=== PATIENT | female | born 1995 | race Caucasian/White ===

== ENCOUNTER 2024-10-30 22:00 | Emergency (ER) | payer OTHER, BC, SELFPAY ==
--- NOTE | ~2024-10-30 | XR_ITS ---
Left elbow Technique: AP, oblique, and lateral views were obtained. Clinical History: Pain Findings: There is nondisplaced intra-articular fracture of the radial head.. Probable associated sma ll joint effusion with mild elevation of the anterior fat pad. Impression: Nondisplaced intra-articular fracture of the radial head. Reviewed, dictated and finalized at [facility]. ONNEL SPECIALIST Impression: Nondisplaced intra-articular fracture of the radial head.
[2024-10-30 22:03] VITALS: BP 110/91; PULSE 79; RESP 17; TEMP 36.6; O2SAT 99
--- NOTE | 2024-10-30 22:58 | ED.UPPEXIN ---
HPI - Extremity Injury (Upper) General Chief Complaint: Extremity Injury, Upper Stated Complaint: fell during dance. left elbow pain Time Seen by Provider: 10/30/24 22:07 Source: patient Mode of arrival: ambulatory Limitations: no limitations History of Present Illness HPI narrative: Patient is a 28-year-old female who presents the ED with report of left elbow pain. 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 She fell onto her left arm outstretched. Complains of pain to her left elbow. Reports mild swelling. Denies numbness. Denies any other injuries. Related Data Allergies Allergy/AdvReac Type Severity Reaction Status Date / Time azithromycin (From Zithromax AdvReac Diarrhea Verified 10/30/24 22:06 Z-El) Review of Systems Review of Systems: All systems reviewed & are unremarkable except as noted in HPI. All systems reviewed & are unremarkable except as noted in HPI and below Exam Narrative: GENERAL: Well appearing, well-nourished, non-toxic, in no acute distress. HEAD: Normocephalic, atraumatic. RESPIRATORY: Airway patent, respirations nonlabored. CARDIOVASCULAR: Regular rate and rhythm. Radial pulses strong and easily palpable. MUSCULOSKELETAL: Moves all extremities. No gross deformities. Limited range of motion of left elbow flexion and extension/supination/pronation due to pain. Tenderness to palpation over lateral epicondyle of left elbow. Mild swelling noted throughout left elbow. Sensation intact throughout LUE. SKIN: Warm, dry, normal color. NEURO: A&O X3. Speech clear. PSYCHIATRIC: Appropriate mood and affect. Normal interaction. Course Vital Signs Vital signs: Vital Signs Temperature 97.8 F 10/30/24 22:03 Pulse Rate 79 10/30/24 22:03 Respiratory Rate 17 10/30/24 22:03 Blood Pressure 110/91 H 10/30/24 22:03 Pulse Oximetry 99 10/30/24 22:03 Oxygen Delivery Room Air 10/30/24 22:03 Temperature 97.8 F 10/30/24 22:03 Pulse Rate 79 10/30/24 22:03 Respiratory Rate 17 10/30/24 22:03 Blood Pressure 110/91 H 10/30/24 22:03 Pulse Oximetry 99 10/30/24 22:03 Oxygen Delivery Room Air 10/30/24 22:03 MDM - Extremity Injury (Upper) MDM Narrative Medical decision making narrative: Patient?s injury is consistent with musculoskeletal etiology. No signs of neurologic or vascular compromise on physical examination. Compartments are soft without signs of compartment syndrome. XR left elbow interpreted by myself with evidence of nondisplaced radial head fracture. Pain is consistent with exam and injury. Patient is felt to be stable for discharge home and further outpatient management and treatment. Placed in sling. Given pain medication. Will be referred to orthopedics for further evaluation. Given return precautions. She agrees with plan. Discharged in stable condition. Medical Records Attestation: I reviewed the patient's medical records. Imaging Data Attestation: I personally reviewed and interpreted this imaging study as follows: My impression: XR L elbow: Nondisplaced radial head fracture. Discharge Plan Discharge Clinical Impression: Fracture of head of left radius Qualifiers: Encounter type: initial encounter Fracture type: closed Fracture alignment: nondisplaced Qualified Code(s): S52.125A - Nondisplaced fracture of head of left radius, initial encounter for closed fracture Patient Disposition: Home, Self-Care Condition: Stable Instructions: Antibiotic Form, Elbow Fracture (ED), How to Use a Sling (ED) Additional Instructions: You were diagnosed with a fracture of your left radial head. Utilize sling for comfort and support. Recommend frequent icing to elbow. Utilize Tylenol and ibuprofen as needed for pain, oxycodone as needed for more severe pain. Follow-up with orthopedics for further evaluation and management of fracture. Return to ED if you experience worsening or severe pain or swelling, numbness, recurrent injury, or any other symptoms of concern. Patient Language: Romansh Prescriptions: New ibuprofen 600 mg tablet 600 mg PO Q6H PRN (Reason: pain) Qty: 20 0RF acetaminophen 500 mg capsule 1,000 mg PO Q6H PRN (Reason: pain) Qty: 20 0RF oxycodone 5 mg tablet 5 mg PO Q6H PRN (Reason: pain) Qty: 15 0RF Follow-up/Referrals: Mayo Stokes MD [Physician] - (ORTHOPEDICS) PHYSICIAN NOT ON STAFF,NONSTAFF [Primary Care Provider] - Time of Disposition: 23:31
[2024-10-30] MEDS: HYDROcodone/acetaminophen (*CRX) 5-325 MG TABLET 1 TAB PO (23:04)
--- OUTSIDE RECORDS SUMMARY | 2024-11-04 11:46 | XMS_ITS | Encounter Summary ---
Author Organization [facility] Address [address] [place]: Epic Prelude ADT [place] [address] Care Team Providers Care Cad Designer Drafter Name Role Phone Wilfrido Burnette MD Primary Care Provider Yolis Holt PUPPY SITTER Unavailable [phone] Encounter Details Date Type Department Care Team (Latest Contact Info) Description 02/08/2021 Travel Social History Tobacco Use Types Packs/Day Years Used Date Smoking Tobacco: Never Smokeless Tobacco: Never Sex and Gender Information Value Date Recorded Sex Assigned at Not on file Gender Identity Not on file Sexual Orientation Not on file COVID-19 Exposure Response Date Recorded In the last month, have you been in contact with someone who was confirmed or suspected to have Coronavirus / COVID-19? No / Unsure 02/08/2021 8:38 AM CDT documented as of this encounter Plan of Treatment Not on file documented as of this encounter Visit Diagnoses Not on filedocumented in this encounter Care Teams Cad Designer Drafter Relationship Specialty Start Date End Date Wilfrido Burnette MD [address] [place] [phone] PCP - General Family Practice 03/26/17 Yolis Holt APRN [address] [place] [phone] PCP - Primary Care APP Family Practice 03/26/17 documented as of this encounter
--- OUTSIDE RECORDS SUMMARY | 2024-11-04 11:46 | XMS_ITS | Encounter Summary ---
Author Organization [facility] Address [address] [place] [address] Care Team Providers Care Radiographic Technologist Name Role Phone Wilfrido Burnette MD Primary Care Provider Yolis Holt APRN Unavailable [phone] Reason for Visit * Reason Comments Cough starting Friday even ing; strep exposure over past week; Encounter Details Date Type Department Care Team ([facility] st Contact Info) Description 03/06/2021 8:06 AM CDT - 03/06/2021 10:03 AM CDT Emergency [facility] Emergency Department [address] [place] [phone] Rekha Solis DO [address] [facility] [place] [phone] Cough (Primary Dx) Discharge Disposition: Home or Self Care Social History Tobacco Use Types Packs/Day Years [...] AM CDT documented as of this encounter Last Filed Vital Signs Vital Sign Reading Time Taken Comments Blood Pressure 120/69 03/06/2021 7:44 AM CDT Pulse 82 03/06/2021 7:44 AM CDT Temperature 36.4 ??C (97.6 ??F) 03/06/2021 7:44 AM CD T Respiratory Rate 20 03/06/2021 7:44 AM CDT Oxygen Saturation 100% 03/06/2021 7:44 AM CDT Inhaled Oxygen Concentration - - Weight 48.5 kg (107 lb) 03/06/2021 7:44 AM CDT Height - - Body Mass Index 20.22 11/13/2020 9:10 PM TUBE PUSHER documented in this encounter Discharge Instructions * Discharge Instructions* Rekha Solis DO - 03/06/2021 8:42 AM CDT You were seen and evaluated in the emergency department for your cough and congestion. As we discussed, your COVID-19 swab was negative. You can use an antihistamine such as Zyrtec for your symptoms.You may also use Mucinex to break up the mucus and congestion. Drink plenty of water. Use a teaspoon of honey at a time as a cough suppressant. Follow-up with your primary care physician for reevaluation in 2 to 3 days. Return to the emergency department for any worsening or concerning symptoms. * Attachments The following attachments cannot be sent through Care Everywhere. * Cough (Cook Islander) documented in this encounter Medications at Time of Discharge Medication Sig Dispensed Refills Start Date End Date amoxicillin-clavulanate (AUGMENTIN) 875-125 mg tablet Take 1 Tablet by mouth every 12 hours. 20 Tablet None 11/13/2020 benzonatate (TESSALON) 200 mg capsuleIndications:Fever in adult,Acute upper respiratory infection Take 1 Capsule (200 mg) by mouth 3 times daily as needed for Cough. 30 Capsule 09/29/2019 documented as of this encounter ED Notes * Rekha Solis DO - 03/06/2021 7:36 AM CDT HISTORY OF PRESENT ILLNESS Chiqui Romo, a 25 y.o. female presents to the ED with a Chief Complaint of Cough Subjective This is a 25-year-old female presents to the emergency department for evaluation of cough. The patient tells me that on she received her second Covid vaccine. Late Friday evening she began to experience sore throat, chills, cough and generalized ill feeling. She tells me that this all resolved with the exception of congestion and cough. This persisted through the weekend. 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 She tells me that she needs a negative COVID-19 swabto return to work. She has no other reported symptoms. She is otherwise healthy and takes no prescription medication daily. REVIEW OF SYSTEMS Review of Systems Constitutional: Negative for chills and fever. HENT: Positive for congestion. Negative for sore throat and voice change. Eyes: Negative for discharge and redness. Respiratory: Positive for cough. Negative for shortness of breath. Cardiovascular: Negative for chest pain. Gastrointestinal: Negative for abdominal pain, nausea and vomiting. Skin: Negative for color change and rash. Neurological: Negative for weakness and headaches. Psychiatric/Behavioral: Negative for agitation and confusion. All other systems reviewed and are negative. PAST MEDICAL HISTORY REVIEWED MEDICAL: Patient has a past medical history of Patient denies relevant medical history and Viral hepatitis. SURGICAL: Patient At least one of the histories has not been reviewed in over a year. Please Nasir as Reviewedin the history section then refresh this Smart Link. FAMILY: Patient's family history is not on file. SOCIAL: reports that she has never smoked. She has never used smokeless tobacco. No history on file. Social History Other Topics Concern ??? Not on file ALLERGIES Azithromycin HOME MEDICATIONS Patient's Home Medications Current Home Medications AMOXICILLIN-CLAVULANATE (AUGMENTIN) 875-125 MG TABLET BENZONATATE (TESSALON) 200 MG CAPSULE Medications Modified during this Encounter Medications Discontinued during this Encounter Objective PHYSICAL EXAM INITIAL VS BP: 120/69 (03/06/21743), Heart Rate: (not recorded), Resp: 20 (03/06/21743), Pulse: 82 (03/06/21743), Temp: 97.6 ??F (36.4 ??C) (03/06/21743), Temp src: Temporal (03/06/21743), SpO2: 100 %(03/06/21 0744), Height: (not recorded), Weight: 48.5 kg (107 lb) (03/06/21 0744), BMI (Calculated): (not recorded) No LMP recorded. Physical Exam Vitals and nursing note reviewed. HENT: Head: Normocephalic and atraumatic. Nose: Nose normal. Mouth/Throat: Mouth: Mucous membranes are moist. Pharynx: No oropharyngeal exudate or posterior oropharyngeal erythema. Comments: Uvula is midline. There is no intraoral swelling. Eyes: Extraocular Movements: Extraocular movements intact. Pupils: Pupils are equal, round, and reactive to light. Neck: Comments: No lymphadenopathy Cardiovascular: Rate and Rhythm: Normal rate and regular rhythm. Pulses: Normal pulses. Heart sounds: Normal heart sounds. Pulmonary: Effort: Pulmonary effort is normal. Breath sounds: Normal breath sounds. No wheezing or rales. Abdominal: General: There is no distension. Palpations: Abdomen is soft. Tenderness: There is no abdominal tenderness. Musculoskeletal: General: Normal range of motion. Cervical back: Normal range of motion and neck supple. Skin: General: Skin is warm and dry. Capillary Refill: Capillary refill takes less than 2 seconds. Neurological: Mental Status: She is alert and oriented to person, place, and time. Comments: Normal speech. Normal coordination. Psychiatric: Mood and Affect: Mood normal. Behavior: Behavior normal. DIAGNOSTICS LAB: 2019 NOVEL CORONAVIRUS (COVID-19) PCR DETECTION Result Value COVID-19 PCR Not Detected PERFORMING LAB [facility]: No orders to display EKG: PROCEDURES Procedures MEDICAL DECISION MAKING AND PLAN OF CARE MDM I have reviewed nursing notes related to past medical history, social history, and review of systems and agree, unless otherwise noted. 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 Vital signs stable here. On exam the patient was nontoxic and had no evidence of respiratory distress. Lung sounds are clear equal throughout. She had no cervical lymphadenopathy. No tonsillar exudates, swelling, or posterior pharyngeal erythema. Covid swab performed and was negative. At this time, she will be discharged home with instruction to continue supportive care for her congestion and cough. I haveasked that she follow-up with her primary care physician as needed and return to the emergency department for any worrisome or concerning symptoms. She voiced understands plan. All questions sought and answered. . New Prescriptions for this Encounter LAST VS BP: 120/69 (03/06/21743), Heart Rate: (not recorded), Resp: 20 (03/06/21743), Pulse: 82 (03/06/21743), Temp: 97.6 ??F (36.4 ??C) (03/06/21743), Temp src: Temporal (03/06/21743), SpO2: 100 %(03/06/21743) CLINICAL IMPRESSION Final diagnoses: [R05] Cough (Primary) DISPOSITION, EDUCATION AND MEDICATION RECONCILIATION Medications reconciled. See after visit summary for patient education on discharged patients. ED Disposition ED Disposition Condition User Date/Time Comment Discharge Stable Rekha Solis DO Tue Mar 06, 2021 9:49 AM ATTESTATION STATEMENTS documented in this encounter Plan of Treatment Not on file documented as of this encounter Procedures Procedure Name Priority Date/Time Associated Diagnosis Comments 2019 NOVEL CORONAVIRUS (COVID-19) PCR DETECTION Stat 03/06/2021 8:26 AM CDT documented in this encounter Results * 2019 NOVEL CORONAVIRUS (COVID-19) PCR DETECTION (03/06/2021 8:26 AM CDT) COVID-19 PCR NOT DETECTED Not Detected 03/06/20 9:38 AM CDT [facility] 03/06/2021 9:38 AM CDT [facility] Upper Respiratory ENTIRE NASOPHARYNX / Unknown Collection / Unknown 03/06/2021 8:26 AM CDT 03/06/2021 8:43 AM CDT Narrative [facility] - 03/06/2021 9:38 AM CDT This test has been authorized by the FDA under an Emergency Use Authorization for use by authorized laboratories.?? This test has been validated in accordance with the FDA's guidance regarding Coronavirus Disease-2019 testing.?? Optimum specimen types and timing for peak viral levels during infection have not been determined.?? A negative RT-PCR result does not rule out infection with the 2019-Novel Coronavirus. Rekha Solis DO MICROBIOLOGY - GENERAL ORDERABLES [facility] CLIA# [id number] [address] [address] documented in this encounter Visit Diagnoses Diagnosis Cough- Primary documented in this encounter Additional Health Concerns Infection Onset Date Last Indicated Resolved Time R/O COVID-19 03/06/2021 03/06/2021 03/06/2021 9:38 AM CDT documented as of this encounter Care Teams Radiographic Technologist Relationship Specialty Start Date End Date Wilfrido Burnette MD [address] [place] [phone] PCP - General Family Practice 03/26/17 Yolis Holt APRN [address] [place] [phone] PCP - Primary Care APP Family Practice 03/26/17 documented as of this encounter
--- OUTSIDE RECORDS SUMMARY | 2024-11-04 11:46 | XMS_ITS | Clinical Summary ---
Author Organization [facility] Address [address] [place] [address] Care Team Providers Care Clinical Operations Consultant Name Role Phone Wilfrido Burnette MD Primary Care Provider Yolis Holt MOP MACHINE OPERATOR Unavailable [phone] Allergies Active Allergy Reactions Criticality Noted Date Comments Azithromycin Diarrhea High 03/26/2017 Medications Medication Sig Dispensed Refills Start Date End Date Status benzonatate (TESSALON) 200 mg capsuleIndications:Fe leeann in adult,Acute upper respiratory infection Take 1 Capsule (200 mg) by mouth 3 times daily as needed for Cough. 30 Capsule 09/29/2019 Active amoxicillin-clavulana te (AUGMENTIN) 875-125 mg tablet Take 1 Tablet by mouth every 12 hours. 20 Tablet None 11/13/2020 Active Active Problems No known active problems Immunizations Name Administration Dates Next Due (Earlier Media)(12 YR UP) COVID-19 VACCINE - EMERGENCY USE AUTHORIZATION, MRNA, [id number](PF) 30 MCG/0.3 ML IM SUSP 03/01/2021,02/08/2021 Social History Tobacco Use Types Packs/Day Years Used Date Smoking Tobacco: Never Smokeless Tobacco: Never Tobacco Cessation:Counseling Given: Yes Sex and Gender Information Value Date Recorded Sex Assigned at Not on file Gender Identity Not on file Sexual Orientation Not on file Last Filed Vital Signs Vital Sign Reading Time Taken Comments Blood Pressure 120/69 03/06/2021 7:44 AM CDT Pulse 82 03/06/2021 7:44 AM CDT Temperature 36.4 ??C (97.6 ??F) 03/06/2021 7:44 AM CD T Respiratory Rate 20 03/06/2021 7:44 AM CDT Oxygen Saturation 100% 03/06/2021 7:44 AM CDT Inhaled Oxygen Concentration - - Weight 48.5 kg (107 lb) 03/06/2021 7:44 AM CDT Height 154.9 cm (5' 1 ) 11/13/2020 9:10 PM SPARE HAND CARDING Body Mass Index 20.22 11/13/2020 9:10 PM SPARE HAND CARDING Plan of Treatment Health Maintenance Due Date Last Done Comments DTAP/TDAP/TD VACCINES (1 - Tdap) 2015 HEPATITIS B VACCINES (1 of 3 - 19+ 3-dose series) 2015 CERVICAL CANCER SCREENING 2017 Preventative Visit- Commercial 11/17/2023 05/27/2022 INFLUENZA VACCINE (#1) 2024 09/24/2018 COVID-19 Vaccine (3 - 2023-2 5 season) 2024 03/01/2021, 02/08/2021 HPV VACCINES Aged Out No longer eligi ble based on patient's age to complete this topic PNEUMOCOCCAL VACCINE 0-64 YEARS Aged Out No longer eligible b ased on patient's age to complete this topic Care Teams Clinical Operations Consultant Relationship Specialty Start Date End Date Wilfrdio Burnette MD [address] [place] [phone] PCP - General Family Practice 03/26/17 Yolis Holt APRN [address] [place] [place] [phone] PCP - Primary Care APP1 Family Practice 03/26/17
--- OUTSIDE RECORDS SUMMARY | 2024-11-04 11:46 | XMS_ITS | Encounter Summary ---
Author Organization [facility] Address [address] [place] [address] Care Team Providers Care Deputy Building Guard Name Role Phone Wilfrido Burnette MD Primary Care Provider Yolis Holt ARRANGING FUNERAL DIRECTOR Unavailable [phone] Encounter Details Date Type Department Care Team ([facility] Contact Info) Description 03/01/2021 8:20 AM CDT Immunization [facility] [address] [address] High priority for 2019 novel coronavirus vaccination (Primary Dx) Social History Tobacco Use Types Packs/Day Years [...] documented as of this encounter Visit Diagnoses Diagnosis High priority for 2019 novel coronavirus vaccination- Primary documented in this encounter Care Teams Deputy Building Guard Relationship Specialty Start Date End Date Wilfrido Burnette MD [address] [place] [phone] PCP - General Family Practice 03/26/17 Yolis Holt, ARRANGING FUNERAL DIRECTOR [address] [place] [phone] PCP - Primary Care APP1 Family Practice 03/26/17 documented as of this encounter
--- OUTSIDE RECORDS SUMMARY | 2024-11-04 11:46 | XMS_ITS | Encounter Summary ---
Author Organization [facility] Address [address] [place] [address] Care Team Providers Care Hygiene Coordinator Name Role Phone Wilfrido Burnette MD Primary Care Provider Yolis Holt ACTIVITIES THERAPIST Unavailable [phone] Encounter Details Date Type Department Care Team ([facility] Contact Info) Description 02/08/2021 8:30 AM CDT Immunization [facility] [address] [address] High priority for 2019 novel coronavirus vaccination [...] Primary documented in this encounter Care Teams Hygiene Coordinator Relationship Specialty Start Date End Date Wilfrido Burnette MD [address] [facility] [address] [place] [phone] PCP - General Family Practice 03/26/17 Yolis Holt, ACTIVITIES THERAPIST [address] [facility] [address] [place] [phone] PCP - Primary Care APP1 Family Practice 03/26/17 documented as of this encounter
--- OUTSIDE RECORDS SUMMARY | 2024-11-04 11:47 | XMS_ITS | Encounter Summary ---
Author Organization [facility] Address [address] Attn: Epic Prelude ADT [place] [address] Care Team Providers Care Solar Pool Heating Installer Name Role Phone Unavailable Primary Care Provider Unavailabl e Encounter Details Date Type Department Care Team (Latest Contact Info) Description 05/27/2022 Travel Social History Tobacco Use Types Packs/Day Years Used Date Smoking Tobacco: Never Smokeless Tobacco: Never Sex and Gender Information Value Date Recorded Sex Assigned at Not on file Gender Identity Not on file Sexual Orientation Not on file COVID-19 Exposure Response Date Recorded In the last 10 days, have yo u been in contact with someone who was confirmed or suspected to have Coronavirus/COVID-19? No / Unsure 05/27/2022 2:46 PM CDT documented as of this encounter Plan of Treatment Not on file documented as of this encounter Visit Diagnoses Not on filedocumented in this encounter
--- OUTSIDE RECORDS SUMMARY | 2024-11-04 11:47 | XMS_ITS | Encounter Summary ---
Author Organization [facility] Address [address] [place] [address] Care Team Providers Care Jawbone Puller Name Role Phone Wilfrido Burnette MD Primary Care Provider Yolis Holt SLIDER ASSEMBLER Unavailable [phone] Reason for Visit * Eval and Treat (Routine) - Closed Specialty Diagnoses / Procedures Referred By Nicol vaughan Referred To Contact Physical Therapy Diagnoses Acute bilateral low back pain without sciatica Yolis Holt H, SLIDER ASSEMBLER [address] [facility] [place] [address] [facility] [address] [place] [phone] Referral ID Status Reason Start Date Expiration Date Visits Re quested Visits Authorized [id number] Closed 04/18/2017 04/18/2018 6 6 Encounter Details Date Type Department Care Team (Late st Contact Info) Description 05/13/2017 2:07 PM CDT - 05/13/2017 11:59 PM CDT Hospital Encounter [facility] Physical Therapy [facility] [address] [place] [phone] Yolis Holt, SLIDER ASSEMBLER [address] [facility] [place] [phone] [place]berg, [place] I, Physical Therapist Acute bilateral low back pain without sciatica Discharge Disposition: Home or Self Care Social History Tobacco Use Types Packs/Day Years Used Date Smoking Tobacco: Never Sex and Gender Information Value Date Recorded Sex Assigned at Not on file Gender Identity Not on file Sexual Orientation Not on file documented as of this encounter Miscellaneous Notes * Therapy Treatment - Kenya Morales I Physical Therapist - 05/13/2017 2:34 PM CDT Physical Therapy Daily Note Date: 05/13/17 Start Time: 14:20 End Time: 15:15 Total Time: 55 minutes Area Treated: Thoracolumbar and L LE Subjective: Patient reports compliance with HEP. Reports her back has been doing better. Pain level prior to treatment: Are you having pain right now? Yes 2/10 Medication changes since last visit: No Medical Dx change since last visit: No Allergic drug response since last visit: No Significant operation and or procedure since last visit: No Objective: Pt cued for proper positioning and safety with exercises by PT. Pt had no c/o increased pain with exercises Pt performs exercises slowly and with control. Pt requires occasional verbal cues for gluteal and TrA activation. Improved performance with cueing. Modalities Used: 97299 Interferential @ 12.0 intensity 15 minutes, 30497 Cold Pack x 15 minutes in order to decreasepain, decrease inflammation to assist pt to return to PLOF. Skin intact pre/post modality. Modality applied at end of treatment session last 15 minutes. Exercises: See Scanned Exercise Flow-Sheet in Media section of Chart Review Patient performed and progressed on skilled exercises to improve thoracolumbar and pelvic core strength, ROM, posture, and stability.?? Patient monitored and given verbal and tactile cues as needed for proper technique and form. Therapeutic exercises included: Exercise Sets/Repetitions Level Comments Treadmill 5 minutes 2.0 mph Lumbar extension 20 reps 50# Hip abduction X 20 bilateral 17.5# Single leg bridge X 15 bilateral Bird dogs X 20 2# dowel across lumbar Seated trunk rotation X 15 bilateral Level 3 Lateral and forward step ups SLS to 10 inch high step X 20 bilateral Bolivian ball TrA roll outs X 15 Prone REIL for thoracic spine 10 x 3 second holds/sag at end range extension [id number]: Therapeutic Exercise performed for 40 minutes Home Exercise Program/Instruction: See Scanned Exercise Flow-Sheet in Media section of Chart Review. Continue Manual Therapy: None 78578: Manual Therapy performed for 0 minutes Assessment-Patient's Response to Treatment/Functional Progress: Patient again able to tolerate exercise progression difficulty today without increased pain. HEP reviewed. Patient instructed to continue. Pain Level After Treatment: Are you having pain right now? Yes 12/27 Plan: Continue current treatment plan Pt will continue to work on improve bilateral hip strength, and thoracolumbar ROM in order to return to PLOF without pain or limitations. ?? Therapist's Signature: [place] Morales, Physical Therapist documented in this encounter Plan of Treatment Not on file documented as of this encounter Visit Diagnoses Not on filedocumented in this encounter Care Teams Jawbone Puller Relationship Specialty Start Date End Date Wilfrido Burnette MD [address] [facility] [address] [place] [phone] PCP - General Family Practice 03/26/17 Yolis Holt APRN [address] [facility] [place] [phone] PCP - Primary Care APP1 Family Practice 03/26/17 documented as of this encounter
--- OUTSIDE RECORDS SUMMARY | 2024-11-04 11:47 | XMS_ITS | Encounter Summary ---
Author Organization [facility] Address [address] [place] [address] Care Team Providers Care Bus Repair Supervisor Name Role Phone Wilfrido Burnette MD Primary Care Provider Yolis Holt APRN Unavailable [phone] Reason for Visit * Reason Comments Fatigue pt states she has no symptoms but wants to get tested for strep. sister tested positive for strep Encounter Details Date Type Department Care Team (Latest Contact Info) Description 07/17/2018 6:15 PM CDT Office Visit [facility] [address] [place] [phone] Yrn Jaramillo MD [address] [place] [phone] Streptococcal pharyngitis (Primary Dx); Sore throat Social History Tobacco Use Types Packs/Day Years Used Date Smoking Tobacco: Never Smokeless Tobacco: Never Sex and Gender Information Value Date Recorded Sex Assigned at Not on file Gender Identity Not on file Sexual Orientation Not on file documented as of this encounter Last Filed Vital Signs Vital Sign Reading Time Taken Comments Blood Pressure 110/64 07/17/2018 6:39 PM CDT Pulse 66 07/17/2018 6:39 PM CDT Temperature 37.1 ??C (98.7 ??F) 07/17/2018 6:39 PM CD T Respiratory Rate 18 07/17/2018 6:39 PM CDT Oxygen Saturation 99% 07/17/2018 6:39 PM CDT Inhaled Oxygen Concentration - - Weight 49 kg (108 lb) 07/17/2018 6:39 PM CDT Height 154.9 cm (5' 1 ) 07/17/2018 6:39 PM CDT Body Mass Index 20.41 07/17/2018 6:39 PM CDT documented in this encounter Progress Notes * Yrn Jaramillo MD - 07/17/2018 7:05 PM CDT HISTORY OF PRESENT ILLNESS Chiqui Romo, a 22 y.o. female presents with a Chief Complaint of Fatigue (pt states she has nosymptoms but wants to get tested for strep. sister tested positive for strep) Subjective 22-year-old white female's been exposed to strep closely. She is having some fatigue but otherwise is asymptomatic. The history is provided by the patient. The medical record reflects the History of Present Illness as obtained by myself in discussion withthe patient. Fatigue This is a new problem. The current episode started yesterday. The problem occurs constantly. The problem has not changed since onset.Pertinent negatives include no chest pain, no abdominal pain, no headaches and no shortness of breath. Nothing aggravates the symptoms. Nothing relieves the symptoms.She has tried nothing for the symptoms. REVIEW OF SYSTEMS Review of Systems Constitutional: Positive for fatigue. HENT: Negative. Eyes: Negative. Respiratory: Negative. Negative for shortness of breath. Cardiovascular: Negative. Negative for chest pain. Gastrointestinal: Negative. Negative for abdominal pain. Musculoskeletal: Negative. Neurological: Negative. Negative for headaches. Objective PHYSICAL EXAM BP 110/64 (BP Location: Left arm, Patient Position (BP): Sitting, BP Cuff Size: Adult) Pulse 66 Temp 98.7 ??F (37.1 ??C) (Temporal) Resp 18 Ht 5' 1 (1.549 m) Wt 49 kg (108 lb) LMP 06/13/2018 (Exact Date) SpO2 99% BMI 20.41 kg/m?? Physical Exam Constitutional: She is oriented to person, place, and time. She appears well- developed and well-nourished. HENT: Head: Normocephalic and atraumatic. Right Ear: External ear normal. Left Ear: External ear normal. Nose: Nose normal. Mouth/Throat: Oropharynx is clear and moist. No oropharyngeal exudate. Eyes: Pupils are equal, round, and reactive to light. Conjunctivae are normal. Neck: Normal range of motion. Neck supple. Cardiovascular: Normal rate, regular rhythm and normal heart sounds. Pulmonary/Chest: Effort normal and breath sounds normal. No respiratory distress. She has no wheezes. She has no rales. Lymphadenopathy: She has no cervical adenopathy. Neurological: She is alert and oriented to person, place, and time. Skin: Skin is warm and dry. Results for orders placed or performed in visit on 07/17/18 (from the past 24 hour(s)) POC RAPID STREP A Result Value Ref Range RAPID STREP Positive (A) Negative INTERNAL KIT QC Pass Pass KIT LOT NUMBER SEE LOG KIT EXPIRATION DATE SEE LOG Procedures Assessment ASSESSMENT and PLAN: ICD-10-CM ICD-9-CM 1. Streptococcal pharyngitis J02.0 034.0 amoxicillin (AMOXIL) 500 mg capsule 2. Sore throat J02.9 462 POC RAPID STREP A POC RAPID STREP A Tylenol as needed for pain. She is cautioned to be sure to take the antibiotic for a full 10 days. documented in this encounter Plan of Treatment Not on file documented as of this encounter Procedures Procedure Name Priority Date/Time Associated Diagnosis Comments POC RAPID STREP A ANTIGEN Routine 07/17/2018 6:46 PM CDT Sore throat documented in this encounter Results * (ABNORMAL) POC RAPID STREP A (07/17/2018 6:46 PM CDT) RAPID STREP Positive( A) Negative [facility] INTERNAL KIT QC Pass Pass [facility] KIT LOT NUMBER POC SEE LOG [facility] KIT EXPIRATION DATE POC SEE LOG [facility] Upper respiratory specimen (specimen) SPECIMEN FROM THROAT / Unknown 07/17/2018 6:46 PM CDT Yrn Jaramillo MD POINT OF CARE TESTIN G [facility] CLIA# [id number] [address] [place] [address] documented in this encounter Visit Diagnoses Diagnosis Streptococcal pharyngitis- Primary Streptococcal sore throat Sore throat Acute pharyngitis documented in this encounter Care Teams Bus Repair Supervisor Relationship Specialty Start Date End Date Wilfrido Burnette MD [address] [facility] [address] [place] [phone] PCP - General Family Practice 03/26/17 Yolis Holt APRN [address] [facility] [place] [phone] PCP - Primary Care [facility] Family Practice 03/26/17 documented as of this encounter
--- OUTSIDE RECORDS SUMMARY | 2024-11-04 11:47 | XMS_ITS | Encounter Summary ---
Author Organization [facility] Address [address] [place] [address] Care Team Providers Care Supply Chain Planner Name Role Phone Unavailable Primary Care Provider Unavailabl e Reason for Referral * Eval and Treat (Routine) - Closed Specialty Diagnoses / Procedures Referred By Nicol vaughan Referred To Contact Sports Medicine Diagnoses Achilles tendon pain Yolis Holt APRN [address] [place] [address] Kash Dia MD [address], [place] [address] Referral ID Status Reason Start Date Expiration Date Visits Re quested Visits Authorized [id number] Closed 05/27/2022 05/27/2023 1 1 Reason for Visit * Reason Comments Physical TB skin test Encounter Details Date Type Department Care Team (Late st Contact Info) Description 05/27/2022 3:00 PM CDT Office Visit [facility] Family Medicine Physician [address] [place] [address] Yolis Holt APRN [address] [place] [address] Well adult exam (Primary Dx); Achilles tendon pain Social History Tobacco Use Types Packs/Day Years [...] PM CDT documented as of this encounter Last Filed Vital Signs Vital Sign Reading Time Taken Comments Blood Pressure 118/72 05/27/2022 2:53 PM CDT Pulse 101 05/27/2022 2:53 PM CDT Temperature 37.2 ??C (99 ??F) 05/27/2022 2:53 PM CDT Respiratory Rate - - Oxygen Saturation 98% 05/27/2022 2:53 PM CDT Inhaled Oxygen Concentration - - Weight 49.9 kg (110 lb) 05/27/2022 2:53 PM CDT Height 154.9 cm (5' 1 ) 05/27/2022 2:53 PM CDT Body Mass Index 20.78 05/27/2022 2:53 PM CDT documented in this encounter Progress Notes * Yolis Holt APRN - 05/27/2022 2:58 PM CDT Chiqui Romo is a 26 y.o. female Chief Complaint Patient presents with ??? Physical TB skin test Allergies: traveling back and forth to [place], [place] recently and having problem with allergies. Reports runny nose, nasal congestion. Taking OTC Zyrtec that has improved symptoms. Needing a TB skin test for new dancing contract. Patient is currently not sexually active. Pt reports periods are overall regular with intermittent late cycles. 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 Right achilles tendon/heel pain: Pt reports that she injured her right foot in 2017 that extended into her achilles tendon. Pt reports that she had to be placed in a walking boot x7 weeks. Did not require surgery. Pt reports that she has been dancing ballet more strenuously lately causing pain to the back of her right lower leg and into her right heel. Pt does report improvement of pain when not dancing. Review of Systems - History obtained from the patient General ROS: negative for weight changes, fever ENT ROS: positive for - nasal congestion and nasal discharge Allergy and Immunology ROS: negative for itchy eyes, nasal congestion, sneezing, lymphadenopathy Respiratory ROS: negative for cough, shortness of breath, or wheezing Cardiovascular ROS: negative for chest pain or dyspnea on exertion Gastrointestinal ROS: negative for reflux, abdominal pain, change in bowel habits, or black or bloody stools There is no problem list on file for this patient. Objective BP 118/72 Pulse (!) 101 Temp 99 ??F (37.2 ??C) (Temporal) Ht 5' 1 (1.549 m) Wt 49.9 kg (110 lb) SpO2 98% BMI 20.78 kg/m?? General appearance: alert, well appearing, and in no distress. ENT exam reveals - bilateral TM normal without fluid or infection and post nasal drip noted. Chest: clear to auscultation, no wheezes, rales or rhonchi, symmetric air entry. CVS exam: normal rate, regular rhythm, normal S1, S2, no murmurs, rubs, clicks or gallops. Mental Status: alert, oriented to person, place, and time. Musculoskeletal exam: abnormal exam of right lower leg/ankle/heel. ASSESSMENT & PLAN: Chiqui was seen today for physical. Diagnoses and all orders for this visit: Well adult exam Achilles tendon pain - AMB REFERRAL TO SPORTS MEDICINE Other orders - SKIN TEST TB Wellness handout sent via [employer] or handout given in office. Patient instructions & information discussed with the patient and all questions fully answered.Call or return to clinic prn if these symptoms worsen or fail to improve as anticipated. documented in this encounter Miscellaneous Notes * Patient Instructions - Yolis Holt APRN - 05/27/2022 5:05 PM CDT Images from the original note were not included. ?? Well Visit, Ages 18 to 50: Care Instructions Overview Well visits can help you stay healthy. Your doctor has checked your overall health and may have suggested ways to take good care of yourself. Your doctor also may have recommended tests. At home, youcan help prevent illness withhealthy eating, regular exercise, and other steps. Follow-up care is a campbell part of your treatment and safety. Be sure to make and go to all appointments, and call your doctor if you are having problems. It's also a good idea to know your test resultsand keep alist of the medicines you take. How can you care for yourself at home? Get screening tests that you and your doctor decide on. Screening helps find diseases before any symptoms appear. ??? Eat healthy foods. Choose fruits, vegetables, whole grains, protein, and low-fat dairy foods. Limit fat, especially saturated fat. Reduce salt in your diet. ??? Limit alcohol. If you are a man, have no more than 2 drinks a day or 14 drinks a week. If you are a woman, have no more than 1 drink a day or 7 drinks a week. ??? Get at least 30 minutes of physical activity on most days of the week. Walking is a good choice. You also may want to do other activities, such as running, swimming, cycling, or playing tennis orteam sports. Discuss any changes in your exercise program with your doctor. ??? Reach and stay at a healthy weight. This will lower your risk for many problems, such as obesity, diabetes, heart disease, and high blood pressure. ??? Do not smoke or allow others to smoke around you. If you need help quitting, talk to your doctor about stop-smoking programs and medicines. These can increase your chances of quitting for good. ??? Care for your mental health. It is easy to get weighed down by worry and stress. Learn strategies to manage stress, like deep breathing and mindfulness, and stay connected with your family and community. If you find you often feel sad or hopeless, talk with your doctor. Treatment can help. ??? Talk to your doctor about whether you have any risk factors for sexually transmitted infections(STIs). You can help prevent STIs if you wait to have sex with a new partner (or partners) until you've each been tested for STIs. It also helps if you use condoms (male or female condoms) and if youlimit your sex partners to one person who only has sex with you. Vaccines are available for some STIs, such as HPV. ??? If you think you may have a problem with alcohol or drug use, talk to your doctor. This includes prescription medicines (such as amphetamines and opioids) and illegal drugs (such as cocaine and methamphetamine). Your doctor can help you figure out what type of treatment is best for you. ??? Protect your skin from too much sun. When you're outdoors from 10 a.m. to 4 p.m., stay in the shade or cover up with clothing and a hat with a wide brim. Wear sunglasses that block UV rays. Even when it's cloudy, put broad-spectrum sunscreen (SPF 30 or higher) on any exposed skin. ??? See a dentist one or two times a year for checkups and to have your teeth cleaned. ??? Wear a seat belt in the car. When should you call for help? Watch closely for changes in your health, and be sure to contact your doctor ifyou have any problems or symptoms that concern you. Where can you learn more? Go to https://www.Buzz Referrals.net/patiented Enter P072 in the search box to learn more about Well Visit, Ages 18 to 50: Care Instructions. ?? [id number] [employer]. Care instructions adapted under license by your healthcare professional. If you have questions about a medical condition or this instruction, always ask your healthcare professional. These instructions may not represent the values of this healthcare organization. [employer] disclaims any warrantyor liability for your use of this information. documented in this encounter Plan of Treatment Scheduled Referrals Name Type Priority Associated Diagnoses Orde r Schedule AMB REFERRAL TO SPORTS MEDICINE Outpatient Referral Routine Achilles tendon pain Ordered: 05/27/2022 documented as of this encounter Visit Diagnoses Diagnosis Well adult exam- Primary Routine general medical examination at a health care facility Achilles tendon pain Achilles bursitis or tendinitis documented in this encounter
--- OUTSIDE RECORDS SUMMARY | 2024-11-04 11:47 | XMS_ITS | Encounter Summary ---
Author Organization [facility] Address [address] [facility] Attn: Epic Prelude ADT [place] [address] Care Team Providers Care Bank Worker Name Role Phone Unavailable Primary Care Provider Unavailabl e Encounter Details Date Type Department Care Team (Latest Contact Info) Description 07/20/2022 Travel Social History Tobacco Use Types Packs/Day [...] suspected to have Coronavirus/COVID-19? No / Unsure 07/20/2022 10:45 PM CDT documented as of this encounter Plan of Treatment Not on file documented as of this encounter Visit Diagnoses Not on filedocumented in this encounter
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
--- OUTSIDE RECORDS SUMMARY | 2024-11-04 11:47 | XMS_ITS | Encounter Summary ---
Author Organization [facility] Address [address] [place] [address] Care Team Providers Care Electronics Lead Name Role Phone Wilfrido Burnette MD Primary Care Provider Yolis Holt NET DEVELOPER CONSULTANT Unavailable [phone] Reason for Visit * Eval and Treat (Routine) - Closed Specialty Diagnoses / Procedures Referred By Nicol vaughan Referred To Contact Physical Therapy Diagnoses Acute bilateral low back pain without sciatica Yolis Holt H, NET DEVELOPER CONSULTANT [address] [facility] [place] [address] [facility] [address] [place] [address] Referral ID Status Reason Start Date Expiration Date Visits Re quested Visits Authorized [id number] Closed 04/18/2017 04/18/2018 6 6 Encounter Details Date Type Department Care Team (Late st Contact Info) Description 05/06/2017 2:10 PM CDT - 05/06/2017 11:59 PM CDT Hospital Encounter [facility] Physical Therapy [facility] [address] [place] [address] Yolis Holt, NET DEVELOPER CONSULTANT [address] [facility] [place] [phone] [place], [place] I, Physical Therapist Acute bilateral low [...] - Kenya Morales I Physical Therapist - 05/06/2017 3:48 PM CDT Physical Therapy Daily Note Date: 05/06/17 Start Time: 14:15 End Time: 15:15 Total Time: 60 minutes Area Treated: Thoracolumbar and L LE Subjective: Patient reports compliance with HEP. Reports she has not been to dance the past few days due to caring for her grandfather. Pain level prior to treatment: Are you having pain right now? Yes 4/10 Medication changes since last visit: No Medical [...] activation. Improved performance with cueing. Modalities Used: 46887 Interferential @ 12.0 intensity 15 minutes, 94161 Cold Pack x 15 minutes in order [...] exercises included: Exercise Sets/Repetitions Level Comments Treadmill 3 minutes 2.5 mph Lumbar extension 3 minutes 45# Hip abduction X 15 bilateral 17.5# Single leg bridge X 15 bilateral Bird dogs X 20 2# dowel across lumbar Seated trunk rotation X 15 bilateral Level 3 Prone supermans X 10 bilateral Lateral step ups SLS to 8 inch high step X 20 bilateral Burkinan ball TrA roll outs X 10 Prone REIL for thoracic spine 10 x 3 second holds/sag at end range extension 88900: Therapeutic Exercise performed for 45 minutes Home Exercise Program/Instruction: See Scanned Exercise Flow-Sheet in Media section of Chart Review. Continue Manual Therapy: None 90704: Manual Therapy performed for 0 minutes Assessment-Patient's Response to Treatment/Functional Progress: Patient able to tolerate exercise progression difficulty today [...] on filedocumented in this encounter Care Teams Electronics Lead Relationship Specialty Start Date End Date Wilfrido Burnette MD [address] [place] [address] PCP - General Family Practice 03/26/17 Yolis Holt APRN [address] [facility] [place] [address] PCP - Primary Care APP Family Practice 03/26/17 documented as of this encounter
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
--- OUTSIDE RECORDS SUMMARY | 2024-11-04 11:47 | XMS_ITS | Encounter Summary ---
Author Organization [facility] Address [address] [place] [address] Care Team Providers Care Porter Luggage Name Role Phone Wilfrido Burnette MD Primary Care Provider Yolis Holt APRN Unavailable [phone] Reason for Visit * Reason Onset Date Comments Medication Refill 08/22/2017 Encounter Details Date Type Department Care Team ([facility] st Contact Info) Description 08/22/2017 Telephone [facility] Family Medicine Physician Jag [address] [facility] [facility] [address] [place] [phone] Yolis Holt, JARROD [address] [facility] [place] [phone] Medication Refill Social History Tobacco Use Types Packs/Day Years Used Date Smoking Tobacco: Never Sex and Gender Information Value Date Recorded Sex Assigned at Not on file Gender Identity Not on file Sexual Orientation Not on file documented as of this encounter Miscellaneous Notes * Telephone Encounter - April Barker - 08/22/2017 12:19 PM CDT ----- Message from Yolis Holt APRN sent at 08/21/2017 5:21 PM CDT ----- Thyroid labs are normal. Vit D is low. Please order Rx for vit D, weekly tab x 6 months documented in this encounter Plan of Treatment Not on file documented as of this encounter Visit Diagnoses Not on filedocumented in this encounter Care Teams Porter Luggage Relationship Specialty Start Date End Date Wilfrido Burnette MD [address] [facility] [address] [place] [phone] PCP - General Family Practice 03/26/17 Yolis Holt APRN [address] [facility] [place] [phone] PCP - Primary Care APP1 Family Practice 03/26/17 documented as of this encounter
--- OUTSIDE RECORDS SUMMARY | 2024-11-04 11:47 | XMS_ITS | Encounter Summary ---
Author Organization [facility] Address [address] [place] [address] Care Team Providers Care Public Health Professor Name Role Phone Wilfrido Burnette MD Primary Care Provider Yolis Holt CABIN CREW Unavailable [phone] Reason for Visit * Reason Comments Headache 3 days Sore Throat has been exposed to strep, wants swab, no known fever, denies cough or congestion Encounter Details Date Type Department Care Team (Late st Contact Info) Description 09/24/2018 1:45 PM CERTIFIED SHORTHAND REPORTER Office Visit [facility] Family Medicine Physician Jag [address] [facility] [place] [phone] Yolis Holt, CABIN CREW [address] [facility] [facility] [place] [phone] Sore throat (Primary Dx); Acute non-recurrent pansinusitis Social History Tobacco Use Types Packs/Day Years Used Date Smoking Tobacco: Never Smokeless Tobacco: Never Tobacco Cessation:Counseling Given: Yes Sex and Gender Information Value Date Recorded Sex Assigned at Not on file Gender Identity Not on file Sexual Orientation Not on file documented as of this encounter Last Filed Vital Signs Vital Sign Reading Time Taken Comments Blood Pressure 108/66 09/24/2018 1:51 PM CERTIFIED SHORTHAND REPORTER Pulse 61 09/24/2018 1:51 PM CERTIFIED SHORTHAND REPORTER Temperature 36.4 ??C (97.5 ??F) 09/24/2018 1:51 PM CS T Respiratory Rate - - Oxygen Saturation 98% 09/24/2018 1:51 PM CERTIFIED SHORTHAND REPORTER Inhaled Oxygen Concentration - - Weight 47.8 kg (105 lb 6.4 oz) 09/24/2018 1:51 P M CERTIFIED SHORTHAND REPORTER Height 154.9 cm (5' 1 ) 09/24/2018 1:51 PM CERTIFIED SHORTHAND REPORTER Body Mass Index 19.92 09/24/2018 1:51 PM CERTIFIED SHORTHAND REPORTER documented in this encounter Progress Notes * Yolis Holt APRN - 09/24/2018 2:30 PM CST SUBJECTIVE: Chiqui Romo is a 22 y.o. female Chief Complaint Patient presents with ??? Headache 3 days ??? Sore Throat has been exposed to strep, wants swab, no known fever, denies cough or congestion Patient denies a history of asthma. Patient does not smoke cigarettes. There is no problem list on file for this patient. OBJECTIVE: BP 108/66 Pulse 61 Temp 97.5 ??F (36.4 ??C) (Temporal) Ht 5' 1 (1.549 m) Wt 47.8 kg (105 lb 6.4 oz) SpO2 98% ? No BMI 19.92 kg/m?? She appears well, vital signs are as noted. Eye exam - pupils equal and reactive, extraocular eye movements intact. ENT exam reveals - right TM fluid noted. Chest: clear to auscultation, no wheezes, rales or rhonchi, symmetric air entry. CVS exam: normal rate, regular rhythm, normal S1, S2, no murmurs, rubs, clicks or gallops. ASSESSMENT: Encounter Diagnoses Name Primary? Sore throat Yes ??? Acute non-recurrent pansinusitis PLAN: Orders Placed This Encounter ??? RAPID STREP SCREEN WITH REFLEX CULTURE (Third trimester) ??? STREPTOCOCCUS GROUP A CULTURE ??? cefdinir (OMNICEF) 300 mg capsule Symptomatic therapy suggested: push fluids and rest. Patient instructions & information discussed with the patient and all questions fully answered. Call or return to clinic prn if these symptomsworsen or fail to improve as anticipated. ?? IFIED SHORTHAND REPORTER * April Barker - 09/24/2018 2:07 PM CST .Seasonal Influenza Vaccine Refused After discussion of risks and benefits of vaccination for seasonal influenza, she has refused immunization at this time. IFIED SHORTHAND REPORTER documented in this encounter Plan of Treatment Not on file documented as of this encounter Procedures Procedure Name Priority Date/Time Associated Diagnosis Comments RAPID STREP SCREEN WITH REFLEX CULTURE Routine 09/24/2018 2:06 PM CERTIFIED SHORTHAND REPORTER Sore throat STREPTOCOCCUS GROUP A CULTURE Routine 09/24/2018 2:06 PM CERTIFIED SHORTHAND REPORTER Sore throat documented in this encounter Results * STREPTOCOCCUS GROUP A CULTURE (09/24/2018 2:06 PM CERTIFIED SHORTHAND REPORTER) CULTURE No Streptococcus Group A isolated 09/26/2018 9:32 AM CERTIFIED SHORTHAND REPORTER [facility] Upper respiratory specimen (specimen) SPECIMEN FROM THROAT / Unknown Collection / Unknown 09/24/2018 2:06 PM CERTIFIED SHORTHAND REPORTER 09/24/2018 2:26 PM CERTIFIED SHORTHAND REPORTER Yolis Holt CABIN CREW MICROBIOLOGY - GE NERAL ORDERABLES [facility] CLIA# [id number] [address] [place] [address] * RAPID STREP SCREEN WITH REFLEX CULTURE (09/24/2018 2:06 PM CERTIFIED SHORTHAND REPORTER) RAPID STREP Negative Negative 09/24/2018 2:27 PM CERTIFIED SHORTHAND REPORTER [facility] Comment: Culture set up on negative strep screen. ?? Upper respiratory specimen (specimen) SPECIMEN FROM THROAT / Unknown Collection / Unknown 09/24/2018 2:06 PM CERTIFIED SHORTHAND REPORTER 09/24/2018 2:10 PM CERTIFIED SHORTHAND REPORTER Yolis Holt APRN MICROBIOLOGY - GE NERAL ORDERABLES [facility] CLIA# [id number] [address] [facility] [address] [place] [address] documented in this encounter Visit Diagnoses Diagnosis Sore throat- Primary Acute pharyngitis Acute non-recurrent pansinusitis documented in this encounter Care Teams Public Health Professor Relationship Specialty Start Date End Date Wilfrido Burnette MD [address] [facility] [address] [place] [address] PCP - General Family Practice 03/26/17 Yolis Holt APRN [address] [facility] [place] [phone] PCP - Primary Care APP1 Family Practice 03/26/17 documented as of this encounter
--- OUTSIDE RECORDS SUMMARY | 2024-11-04 11:47 | XMS_ITS | Encounter Summary ---
Author Organization [facility] Address [address] [place] [address] Care Team Providers Care Engineering Document Control Clerk Name Role Phone Unavailable Primary Care Provider Unavailabl e Reason for Visit * Reason Onset Date Comments needs appointment 05/16/2022 Encounter Details Date Type Department Care Team (Late st Contact Info) Description 05/16/2022 Telephone [facility] Family Medicine Physician Jag [address] [place] [address] Yolis Holt APRN [address] [place] [address] needs appointment Social History Tobacco Use Types Packs/Day Years Used Date Smoking Tobacco: Never Smokeless Tobacco: Never Sex and Gender Information Value Date Recorded Sex Assigned at Not on file Gender Identity Not on file Sexual Orientation Not on file documented as of this encounter Miscellaneous Notes * Telephone Encounter - Kain Salomon RN - 05/21/2022 2:43 PM CDT Scheduled patient for next available. Left VM to return call if need to change. * Telephone Encounter - Saray Mckeon - 05/16/2022 4:06 PM CDT Name of PCP Provider or Prescribing Provider: Yolis Holt APRN Next office visit: Visit date not found Caller: mom Message: Mom calling to schedule an appt for the patient, stated, she needs to Have a physical done next week and a referral for her foot, she did something to her foot. Call back Number: [phone] documented in this encounter Plan of Treatment Not on file documented as of this encounter Visit Diagnoses Not on filedocumented in this encounter
--- OUTSIDE RECORDS SUMMARY | 2024-11-04 11:47 | XMS_ITS | Encounter Summary ---
Author Organization [facility] Address [address] [place] [address] Care Team Providers Care Rn Cardiac Name Role Phone Wilfrido Burnette MD Primary Care Provider Yolis Holt NETWORK ACCOUNT MANAGER Unavailable [phone] Reason for Visit * Reason Comments Hair Loss several years, hair loss of no known cause, supplements ineffective , no recent thyroid check Fatigue increasingly lately Encounter Details Date Type Department Care Team (Late st Contact Info) Description 08/21/2017 11:15 AM CDT Office Visit [facility] [address] [facility] [place] [phone] Yolis Holt, NETWORK ACCOUNT MANAGER [address] [facility] [place] [phone] Other fatigue (Primary Dx); Hair loss; Cold intolerance Social History Tobacco Use Types Packs/Day Years Used Date Smoking Tobacco: Never Tobacco Cessation:Counseling Given: Yes Sex and Gender Information Value Date Recorded Sex Assigned at Not on file Gender Identity Not on file Sexual Orientation Not on file documented as of this encounter Last Filed Vital Signs Vital Sign Reading Time Taken Comments Blood Pressure 104/62 08/21/2017 11:26 AM CDT Pulse 64 08/21/2017 11:26 AM CDT Temperature 36.8 ??C (98.2 ??F) 08/21/2017 11:26 AM C DT Respiratory Rate - - Oxygen Saturation - - Inhaled Oxygen Concentration - - Weight 46.7 kg (103 lb) 08/21/2017 11:26 AM CDT Height 152.4 cm (5') 08/21/2017 11:26 AM CDT Body Mass Index 20.12 08/21/2017 11:26 AM CDT documented in this encounter Progress Notes * Yanet Yolis German, NETWORK ACCOUNT MANAGER - 08/21/2017 11:35 AM CDT Chiqui Romo is a 21 y.o. female Chief Complaint Patient presents with ??? Hair Loss several years, hair loss of no known cause, supplements ineffective , no recent thyroid check. ??? Fatigue increasingly lately. No recent menstrual or bowel changes. Does report frequent intolerance with cold. No big diet change or calorie restrictions. Does get frequent nausea. Does feel like she has been more irritable lately. Review of Systems - General ROS: positive for - fatigue Psychological ROS: positive for - fatigue and irritability Endocrine ROS: positive for - malaise/lethargy Respiratory ROS: negative for cough, shortness of breath, or wheezing Cardiovascular ROS: negative for chest pain or dyspnea on exertion Gastrointestinal ROS: negative for reflux, abdominal pain, change in bowel habits, or black or bloody stools There are no active problems to display for this patient. Current Outpatient Prescriptions on File Prior to Visit Medication Sig Dispense Refill ??? OTHER Thymus from chiro . ??? OTHER biotin . ??? cyclobenzaprine (FLEXERIL) 10 mg tablet Take 1 Tablet (10 mg) by mouth nightly as needed for Spasm. 30 Tablet 0 No current facility-administered medications on file prior to visit. BMI PLAN OF CARE Normal BMI ranges: 18-64 yrs: > or = 18.5 and < 25 65 yrs and older: > or = 23 and < 30 Body mass index is 20.12 kg/(m^2). BMI within normal limits BLOOD PRESSURE BP Readings from Last 3 Encounters: 08/21/17 104/62 03/26/17 110/58 BP is normal defined as systolic reading < and = 119 and diastolic reading is < or = 79.. Objective BP 104/62 Pulse 64 Temp 98.2 ??F (36.8 ??C) (Temporal) Ht 5' (1.524 m) Wt 46.7 kg (103 lb) ? No BMI 20.12 kg/m2 General appearance: alert, well appearing, and [...] speech, dress, motor activity, and thought processes. ASSESSMENT: Encounter Diagnoses Name Primary? Other fatigue Yes ??? Hair loss ??? Cold intolerance PLAN: Orders Placed This Encounter ??? CBC WITH DIFFERENTIAL (Anemia) ??? BMP - NOW UP TO 30 DAYS ??? TSH (Chemistry) ??? T4 FREE (Chemistry) ??? VITAMIN D 25 HYDROXY (Chemistry) Patient instructions & information discussed with the patient and all questions fully answered.Call or return to clinic prn if these symptoms worsen or fail to improve as anticipated. ?? documented in this encounter Plan of Treatment Not on file documented as of this encounter Procedures Procedure Name Priority Date/Time Associated Diagnosis Comments CBC WITH DIFFERENTIAL Routine 08/21/2017 12:19 PM CDT Other fatigue Hair loss Cold intolerance VITAMIN D 25 HYDROXY Routine 08/21/2017 12:19 PM CDT Other fatigue Hair loss Cold intolerance TSH Routine 08/21/2017 12:19 PM CDT Other fatigue Hair loss Cold intolerance T4 FREE Routine 08/21/2017 12:19 PM CDT Other fatigue Hair loss Cold intolerance BASIC METABOLIC PANEL Routine 08/21/2017 12:19 PM CDT Other fatigue Hair loss Cold intolerance documented in this encounter Results * (ABNORMAL) VITAMIN D 25 HYDROXY (08/21/2017 12:19 PM CDT) VITAMIN D TOTAL (25OH) 17(L) 30 - 100 ng/mL 08/21/2017 3:55 PM CDT [facility] Blood Collection / Unknown 08/21/2017 12:19 PM CDT 08/21/2017 12:44 PM CDT Narrative [facility] - 08/21/2017 3:55 PM CDT Interpretive Data Chart: Deficient: 0 - 20 ng/mL Insufficient: 21 - 29 ng/mL Sufficient: 30 - 100 ng/mL Increased Risk of Hypercalciuria: >100 ng/mL Toxic: >150 ng/mL Yolis H Gathright NETWORK ACCOUNT MANAGER CHEMISTRY ORDERAB LES Performing Organization Address City/[facility]/ZIP Co de Phone Number [facility] CLIA# [id number] [address] [place] [id number] * T4 FREE (08/21/2017 12:19 PM CDT) T4 FREE 1.14 0.93 - 1.70 ng/dL 08/21/2017 3:55 PM CDT [facility] Blood Collection / Unknown 08/21/2017 12:19 PM CDT 08/21/2017 12:44 PM CDT Yolis H Gathright NETWORK ACCOUNT MANAGER CHEMISTRY ORDERAB LES Performing Organization Address [facility]/ZIP Co de Phone Number [facility] CLIA# [id number] [address] [place] [address] * TSH (08/21/2017 12:19 PM CDT) TSH 0.79 0.27 - 4.20 uIU/mL 08/21/2017 3:55 PM CDT [facility] Blood Collection / Unknown 08/21/2017 12:19 PM CDT 08/21/2017 12:44 PM CDT Yolis H Gathright NETWORK ACCOUNT MANAGER CHEMISTRY ORDERAB LES [facility] CLIA# [id number] [address] [facility] [address] [place] [id number] * BASIC METABOLIC PANEL (08/21/2017 12:19 PM CDT) SODIUM 141 136 - 145 mmol/L 08/21/2017 4:07 PM [facility] POTASSIUM 4.1 3.5 - 5.1 mmol/L 08/21/2017 4:07 PM [facility] CHLORIDE 104 98 - 107 mmol/L 08/21/2017 4:07 PM [facility] CO2 22 22 - 29 mmol/L 08/21/2017 4:07 PM [facility] CALCIUM 9.9 8.7 - 10.4 mg/dL 08/21/2017 4:07 PM [facility] BUN 14 6 - 20 mg/dL 08/21/2017 4:07 PM [facility] CREATININE 0.78 0.70 - 1.20 mg/dL 08/21/2017 4:07 PM [facility] GLUCOSE 83 70 - 110 mg/dL 08/21/2017 4:07 PM [facility] GFR >60 >=60 mL/min/1.7 3 sq meter 08/21/2017 4:07 PM [facility] Comment: eGFR has not been validated for use in the elderly (> 70 years of age), women, patients with serious co-morbid conditions, or persons with extremes of body size or muscle mass and should also be interpreted with caution in patients with acute kidney failure, dialysis dependent patients, patients reporting exceptional dietary intake (e.g. vegetarian diet, high protein diets, creatine supplementation), and patients with severe liver disease. Based on National Kidney Disease Education Program If patient is , please refer to the GFR result. GFR, >60 >=60 mL/min/1.7 3 sq meter 08/21/2017 4:07 PM [facility] ANION GAP 15 10 - 20 mmol/L 08/21/2017 4:07 PM CDT [facility] Blood Collection / Unknown 08/21/2017 12:19 PM CDT 08/21/2017 12:44 PM CDT Yolis Holt NETWORK ACCOUNT MANAGER CHEMISTRY ORDERAB LES [facility] CLIA# [id number] [address] [facility] [address] [facility] [place] [id number] * (ABNORMAL) CBC WITH DIFFERENTIAL (08/21/2017 12:19 PM CDT) WBC 4.7 3.5 - 11.0 K/uL 08/21/2017 12:52 PM T [facility] RBC 4.69 3.80 - 5.20 M/uL 08/21/2017 12:52 PM [facility] HEMOGLOBIN 13.5 11.7 - 15.7 g/dL 08/21/2017 12:52 PM T [facility] HEMATOCRIT 38.1 35.0 - 47.0 % 08/21/2017 12:52 PM [facility] MCV 81.2 80.0 - 100.0 fL 08/21/2017 12:52 PM [facility] MCH 28.8 26.0 - 34.0 pg 08/21/2017 12:52 PM T [facility] MCHC 35.4 32.0 - 36.0 g/dL 08/21/2017 12:52 PM T [facility] RDW 12.1 11.6 - 14.8 % 08/21/2017 12:52 PM [facility] RDW-STDEV 34.9(L) 37.0 - 54.0 fL 08/21/2017 12:52 PM [facility] PLATELETS 336 150 - 450 K/uL 08/21/2017 12:52 PM T [facility] MPV 9.9 6.6 - 11.7 fL 08/21/2017 12:52 PM T [facility] NEUTROPHILS 60 41 - 74 % 08/21/2017 12:52 PM T [facility] LYMPHOCYTES 31 17 - 47 % 08/21/2017 12:52 PM T [facility] MONOCYTES 7 3 - 13 % 08/21/2017 12:52 PM T [facility] EOSINOPHILS 2 0 - 5 % 08/21/2017 12:52 PM T [facility] BASOPHILS 0 0 - 2 % 08/21/2017 12:52 PM T [facility] NEUTROPHIL ABSOLUTE 2.85 1.40 - 8.10 K/uL 08/21/2017 12:52 PM T [facility] LYMPHOCYTE ABSOLUTE 1.45 0.60 - 5.20 K/uL 08/21/2017 12:52 PM T [facility] MONOCYTE ABSOLUTE 0.33 0.10 - 1.40 K/uL 08/21/2017 12:52 PM [facility] EOSINOPHIL ABSOLUTE 0.07 0.00 - 0.60 K/uL 08/21/2017 12:52 PM T [facility] BASOPHILS ABSOLUTE 0.02 0.00 - 0.20 K/uL 08/21/2017 12:52 PM [facility] Blood Collection / Unknown 08/21/2017 12:19 PM CDT 08/21/2017 12:44 PM CDT Yolis Holt NETWORK ACCOUNT MANAGER HEMATOLOGY ORDERA BLES [facility] CLIA# [id number] [address] [facility] [address] [facility] [place] [address] documented in this encounter Visit Diagnoses Diagnosis Other fatigue- Primary Hair loss Alopecia, unspecified Cold intolerance Other general symptoms documented in this encounter Care Teams Rn Cardiac Relationship Specialty Start Date End Date Wilfrido Burnette MD [address] [facility], [place] [address] [place] [phone] PCP - General Family Practice 03/26/17 Yolis Holt APRN [address] [facility] [place] [place] [phone] PCP - Primary Care APP1 Family Practice 03/26/17 documented as of this encounter
--- OUTSIDE RECORDS SUMMARY | 2024-11-04 11:47 | XMS_ITS | Clinical Summary ---
Author Organization [facility] Address [address] [facility] [address] [place] [address] Care Team Providers Care Coating Machine Operator Name Role Phone Unavailable Primary Care Provider Unavailabl e Allergies Active Allergy Reactions Criticality Noted Date Comments Azithromycin Diarrhea High 03/26/2017 Medications No known medications Active Problems No known active problems Immunizations Name Administration Dates Next Due (PFIZER)(12 YR UP) COVID-19 VACCINE - EMERGENCY USE AUTHORIZATION, MRNA, [id number](PF) 30 MCG/0.3 ML IM SUSP 03/01/2021,02/08/2021 Skin Test TB 05/27/2022,06/15/2021 Social History Tobacco Use Types Packs/Day Years Used Date Smoking Tobacco: Never Smokeless Tobacco: Never Sex and Gender Information Value Date Recorded Sex Assigned at Not on file Gender Identity Not on file Sexual Orientation Not on file Last Filed Vital Signs Vital Sign Reading Time Taken Comments Blood Pressure 115/68 07/20/2022 11:19 PM CDT Pulse 101 05/27/2022 2:53 PM CDT Temperature 36.4 ??C (97.6 ??F) 07/20/2022 7:21 PM CD T Respiratory Rate 18 07/20/2022 11:19 PM CDT Oxygen Saturation 100% 07/20/2022 11:19 PM CDT Inhaled Oxygen Concentration - - Weight 48.1 kg (106 lb) 07/20/2022 7:21 PM CDT Height 154.9 cm (5' 1 ) 07/20/2022 7:21 PM CDT Body Mass Index 20.03 07/20/2022 7:21 PM CDT Plan of Treatment Health Maintenance Due Date Last Done Comments DTAP/TDAP/TD VACCINES (1 - Tdap) 2015 HEPATITIS B VACCINES (1 of 3 - 19+ 3-dose series) 2015 CERVICAL CANCER SCREENING 2017 INFLUENZA VACCINE (#1) 2024 09/24/2018 COVID-19 Vaccine (3 - 2023-2 5 season) 2024 03/01/2021, 02/08/2021 HPV VACCINES Aged Out No longer eligi ble based on patient's age to complete this topic PNEUMOCOCCAL VACCINE 0-64 YEARS Aged Out No longer eligible b ased on patient's age to complete this topic [address] [place] [id number]
--- OUTSIDE RECORDS SUMMARY | 2024-11-04 11:47 | XMS_ITS | Encounter Summary ---
Author Organization [facility] Address 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 Encounter Details Date Type Department Care Team (Late st Contact Info) Description 11/20/2018 2:30 PM BARREL POLISHER Office Visit [facility] [address] [place] [phone] Dianna Tay, TRANSPORTATION PLANNER [address] [facility] [place] [phone] Viral upper respiratory infection (Primary Dx); Fever, unspecified fever cause; Cough Social History Tobacco Use Types Packs/Day Years Used Date Smoking Tobacco: Never Smokeless Tobacco: Never Sex and Gender Information Value Date Recorded Sex Assigned at Not on file Gender Identity Not on file Sexual Orientation Not on file documented as of this encounter Last Filed Vital Signs Vital Sign Reading Time Taken Comments Blood Pressure 104/70 11/20/2018 2:47 PM BARREL POLISHER Pulse 103 11/20/2018 2:47 PM BARREL POLISHER Temperature 37.9 ??C (100.2 ??F) 11/20/2018 2:[address] Respiratory Rate 16 11/20/2018 2:47 PM BARREL POLISHER Oxygen Saturation 96% 11/20/2018 2:47 PM BARREL POLISHER Inhaled Oxygen Concentration - - Weight 48.6 kg (107 lb 3 oz) 11/20/2018 2:47 PM BARREL POLISHER Height 154.9 cm (5' 1 ) 11/20/2018 2:47 PM BARREL POLISHER Body Mass Index 20.25 11/20/2018 2:47 PM BARREL POLISHER documented in this encounter Patient Instructions * Patient Instructions* Dianna Hernández, TRANSPORTATION PLANNER - 11/20/2018 3:20 PM BARREL POLISHER Images from the original note were not included. ARDACO. Viral Respiratory Infection: Care Instructions Your Care Instructions Viruses are very small organisms. They grow in number after they enter your body. There are many types that cause different illnesses, such as colds and the mumps. The symptoms of a viral respiratory infection often start quickly. They include a fever, sore throat, and runny nose. You may also just not feel well. Or you may not want to eat much. Most viral respiratory infections are not serious. They usually get better with time and self-care. Antibiotics are not used to treat a viral infection. That's because antibiotics will not help cure a viral illness. In some cases, antiviral medicine can help your body fight a serious viral infection. Follow-up care is a campbell part of your treatment and safety. Be sure to make and go to all appointments, and call your doctor if you are having problems. It's also a good idea to know your test resultsand keep a list of the medicines you take. How can you care for yourself at home? ?? Rest as much as possible until you feel better. ?? Be safe with medicines. Take your medicine exactly as prescribed. Call your doctor if you think you are having a problem with your medicine. You will get more details on the specific medicine yourdoctor prescribes. ?? Take an iduy-vez-tzdjowh pain medicine, such as acetaminophen (Tylenol), ibuprofen (Advil, Motrin), or naproxen (Aleve), as needed for pain and fever. Read and follow all instructions on the label. Do not give aspirin to anyone younger than 20. It has been linked to Vanna syndrome, a serious illness. ?? Drink plenty of fluids, enough so that your urine is light yellow or clear like water. Hot fluids, such as tea or soup, may help relieve congestion in your nose and throat. If you have kidney, heart, or liver disease and have to limit fluids, talk with your doctor before you increase the amount of fluids you drink. ?? Try to clear mucus from your lungs by breathing deeply and coughing. ?? Gargle with warm salt water once an hour. This can help reduce swelling and throat pain. Use 1 teaspoon of salt mixed in 1 cup of warm water. ?? Do not smoke or allow others to smoke around you. If you need help quitting, talk to your doctorabout stop-smoking programs and medicines. These can increase your chances of quitting for good. To avoid spreading the virus ?? Cough or sneeze into a tissue. Then throw the tissue away. ?? If you don't have a tissue, use your hand to cover your cough or sneeze. Then clean your hand. You can also cough into your sleeve. ?? Wash your hands often. Use soap and warm water. Wash for 15 to 20 seconds each time. ?? If you don't have soap and water near you, you can clean your hands with alcohol wipes or gel. When should you call for help? Call your doctor now or seek immediate medical care if: ? You have a new or higher fever. ? Your fever lasts more than 48 hours. ? You have trouble breathing. ? You have a fever with a stiff neck or a severe headache. ? You are sensitive to light. ? You feel very sleepy or confused. ??Watch closely for changes in your health, and be sure to contact your doctor if: ? You do not get better as expected. Where can you learn more? Go to https://www.[employer].net/patientEd Enter Q795 in the search box to learn more about Viral Respiratory Infection: Care Instructions. Current as of: October 22, 2017 Content Version: 11.8 ?? 1382-0501 [employer]. Care instructions adapted under license by your healthcare professional. If you have questions about a medical condition or this instruction, always ask your healthcare professional. These instructions may not represent the values of this healthcare organization. [employer] disclaims any warranty or liability for your use of this information. EL POLISHER documented in this encounter Progress Notes * Dianna Hernández APRN - 11/20/2018 2:57 PM CST HISTORY OF PRESENT ILLNESS Chiqui Romo, a 23 y.o. 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 Cough This is a new problem. The current episode started yesterday. The problem has been rapidly worsening. The problem occurs every few minutes. The cough is non- productive. Associated symptoms include a fever, headaches, myalgias, nasal congestion, rhinorrhea and a sore throat. Pertinent negatives include no chest pain, chills, ear congestion, ear pain, eye redness, postnasal drip, rash, shortness ofbreath, sweats or wheezing. Associated symptoms comments: sneezing. Risk factors: around sick kids at work. She has tried nothing for the symptoms. There is no history of asthma or pneumonia. REVIEW OF SYSTEMS Review of Systems Constitutional: Positive for fatigue and fever. Negative for activity change, appetite change, chills and unexpected weight change. HENT: Positive for congestion, rhinorrhea, sinus pain, sinus pressure, sneezing and sore throat. Negative for ear discharge, ear pain, hearing loss, mouth sores, nosebleeds, postnasal drip, tinnitus,trouble swallowing and voice change. Eyes: Negative for pain, discharge, redness and itching. Respiratory: Positive for cough. Negative for chest tightness, shortness of breath and wheezing. Cardiovascular: Negative for chest pain and palpitations. Musculoskeletal: Positive for myalgias. Negative for arthralgias, neck pain and neck stiffness. Skin: Negative for color change and rash. Neurological: Positive for weakness and headaches. Negative for dizziness and light-headedness. Hematological: Negative for adenopathy. Objective PHYSICAL EXAM BP 104/70 (BP Location: Left arm, Patient Position (BP): Sitting) Pulse (!) 103 Temp 100.2 ??F (37.9 ??C) (Temporal) Resp 16 Ht 5' 1 (1.549 m) Wt 48.6 kg (107 lb 3 oz) LMP 11/07/2018 SpO2 96% ? No BMI 20.25 kg/m?? Physical Exam Constitutional: She is oriented to person, place, and time. She appears well- developed and well-nourished. She does not appear ill. No distress. HENT: Head: Normocephalic and atraumatic. Right Ear: Hearing, tympanic membrane, external ear and ear canal normal. Left Ear: Hearing, external ear and ear canal normal. Tympanic membrane is erythematous and bulging. Nose: Mucosal edema and rhinorrhea present. No sinus tenderness or septal deviation. No foreign bodies. Right sinus exhibits frontal sinus tenderness. Right sinus exhibits no maxillary sinus tenderness. Left sinus exhibits frontal sinus tenderness. Left sinus exhibits no maxillary sinus tenderness. Mouth/Throat: Uvula is midline and mucous membranes are normal. No oral lesions. Posterior oropharyngeal erythema present. No oropharyngeal exudate. Eyes: Pupils are equal, round, and reactive to light. Conjunctivae, EOM and lids are normal. Right eye exhibits no discharge. Left eye exhibits no discharge. Right conjunctiva is not injected. Left conjunctiva is not injected. Neck: Full passive range of motion without pain. Neck supple. No tracheal deviation present. No thyromegaly present. Cardiovascular: Normal rate, regular rhythm, S1 normal, S2 normal and normal heart sounds. Exam reveals no gallop and no friction rub. No murmur heard. Pulmonary/Chest: Effort normal and breath sounds normal. No stridor. No respiratory distress. She has no wheezes. She has no rhonchi. She has no rales. Lymphadenopathy: She has no cervical adenopathy. Right: No supraclavicular adenopathy present. Left: No supraclavicular adenopathy present. Neurological: She is alert and oriented to person, place, and time. Gait normal. Skin: Skin is warm, dry and intact. Capillary refill takes less than 2 seconds. No rash noted. Psychiatric: She has a normal mood and affect. Her speech is normal and behavior is normal. Judgment and thought content normal. Cognition and memory are normal. Procedures Assessment ASSESSMENT and PLAN: ICD-10-CM ICD-9-CM 1. Viral upper respiratory infection J06.9 465.9 2. Fever, unspecified fever cause R50.9 780.60 POC INFLUENZA A AND B POC RAPID STREP A acetaminophen (TYLENOL) tablet 650 mg 3. Cough R05 786.2 promethazine-dextromethorphan (PHENERGAN-DM) 6.25-15 mg/5 mL syrup Discussed that symptoms were most consistent with viral infection and would likely resolve within 5-7 days on their own. Discussed ineffectiveness of antibiotics in viral illness. Recommended that patient increase fluid intake, start daily antihistamine, twice daily nasal saline rinses, flonase, use a cool mist humidifier, gargle with warm salt water and alternate ibuprofen, Dayquil and Nyquil asneeded. Pt should follow up if symptoms worsen or do not improve within the next 3-4 days. Discussed returning to clinic for repeat flu testing if symptoms worsen over 24hrs. EL POLISHER documented in this encounter Plan of Treatment Scheduled Orders Name Type Priority Associated Diagnoses Orde r Schedule POC INFLUENZA A AND B Point of Care Testing Routine Fever, unspecified fever cause Ordered: 11/20/2018 documented as of this encounter Procedures Procedure Name Priority Date/Time Associated Diagnosis Comments POC RAPID STREP A ANTIGEN Routine 11/20/2018 2:57 PM BARREL POLISHER Fever, unspecified fever cause documented in this encounter Results * POC RAPID STREP A (11/20/2018 2:57 PM BARREL POLISHER) RAPID STREP Negative Negative [facility]VENIENT C[facility] INTERNAL KIT QC Pass [facility] KIT LOT NUMBER POC see log [facility] KIT EXPIRATION DATE POC see log [facility]IENT [facility] Upper respiratory specimen (specimen) SPECIMEN FROM THROAT / Unknown 11/20/2018 2:57 PM BARREL POLISHER Dianna Tay TRANSPORTATION PLANNER POINT OF CARE TESTING [facility] CLIA# [id number] [address] [address] documented in this encounter Visit Diagnoses Diagnosis Viral upper respiratory infection- Primary Acute upper respiratory infections of unspecified site Fever, unspecified fever cause Cough documented in this encounter Administered Medications Inactive Administered Medications - up to 3 most recent administrations Medication Order MAR Action Action Date Dose Rate Site acetaminophen (TYLENOL) tablet 650 mg 650 mg, Oral, ONE TIME ONLY, 1 dose, On Fri11/20/18 at 1515, Routine Given 11/20/2018 3:10 PM BARREL POLISHER 650 mg documented in this encounter Care Teams Teenage Program Director Relationship Specialty Start Date End Date Wilfrido Burnette MD [address] [place] [phone] PCP - General Family Practice 03/26/17 Yolis Holt APRN [address] [facility] [place] [phone] PCP - Primary Care APP Family Practice 03/26/17 documented as of this encounter
--- OUTSIDE RECORDS SUMMARY | 2024-11-04 11:47 | XMS_ITS | Encounter Summary ---
Author Organization [facility] Address 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 ([place], [place] [address] Encounter for PPD test (Primary Dx) Social History Tobacco Use Types [...] PM CDT documented as of this encounter Progress Notes * Edyta Juarez RN - 05/27/2022 3:43 PM CDT PPD Placement note Chiqui Demetrius, 26 y.o. female is here today for placement of PPD test Reason for PPD test: work Pt taken PPD test before: yes Has the patient ever received the BCG vaccine?: yes Has the patient been in recent contact with anyone known or suspected of having active TB disease?:no O: Alert and oriented in NAD. P: PPD placed at right ventral forearm on 05/27/2022. Patient advised to return for reading within 48-72 hours, appointment made for , May 30, 2022, at 0800. documented in this encounter Plan of Treatment Not on file documented as of this encounter Visit Diagnoses Diagnosis Encounter for PPD test- Primary Screening examination for pulmonary tuberculosis documented in this encounter
--- OUTSIDE RECORDS SUMMARY | 2024-11-04 11:47 | XMS_ITS | Encounter Summary ---
Author Organization [facility] Address [address] [place] [address] Care Team Providers Care Managed Care Manager Name Role Phone Wilfrido Burnette MD Primary Care Provider Yolis Holt APRN Unavailable [phone] Reason for Visit * Reason Comments Hand Swelling right thumb swollen for a few days, no injury Encounter Details Date Type Department Care Team (Late st Contact Info) Description 11/13/2020 10:33 PM DIRECTOR OF OUTREACH - 11/13/2020 11:24 PM DIRECTOR OF OUTREACH Emergency [facility] Emergency Department [address] [place] [phone] Felon of finger of right hand (Primary Dx) Discharge Disposition: Home or Self [...] have Coronavirus / COVID-19? No / Unsure 11/13/2020 9:10 PM DIRECTOR OF OUTREACH documented as of this encounter Last Filed Vital Signs Vital Sign Reading Time Taken Comments Blood Pressure 132/85 11/13/2020 9:10 PM DIRECTOR OF OUTREACH Pulse - - Temperature 36.7 ??C (98 ??F) 11/13/2020 9:10 PM DIRECTOR OF OUTREACH Respiratory Rate 20 11/13/2020 9:10 PM DIRECTOR OF OUTREACH Oxygen Saturation 100% 11/13/2020 9:10 PM DIRECTOR OF OUTREACH Inhaled Oxygen Concentration - - Weight 49.9 kg (110 lb) 11/13/2020 9:10 PM DIRECTOR OF OUTREACH Height 154.9 cm (5' 1 ) 11/13/2020 9:10 PM DIRECTOR OF OUTREACH Body Mass Index 20.78 11/13/2020 9:10 PM DIRECTOR OF OUTREACH documented in this encounter Discharge Instructions * Discharge Instructions* Aram Waters PA - 11/13/2020 11:17 PM DIRECTOR OF OUTREACH FOLLOWUP WITH YOUR DOCTOR Chiqui Romo, you were examined and treated today on an emergency basis only. This emergency medical screening examination does not substitute for complete medical care. Please remember that medicine is an art as well as a science and not everything can be addressed during your emergency visit.We try very hard to rule out life-threatening problems here. As such, you may need to address additional problems with a primary care physician. Your visit here is not complete without an examinationand follow-up by your primary care physician. You may also have been given the name of a specialistto contact. It is your responsibility to contact and make an appointment with the specialist as well. We have not made any appointments for you. Failure to see your doctor or the referring specialistas soon as possible may worsen your medical condition and cause rat exterminator disabilities. Make the appointment today so there is no delay! It is your responsibility to contact your primary doctor for afollow-up visit as soon as possible. If you do not have a primary care doctor, then you have been given the contact information of the doctor who is director clinical operations to see new patients after your visit today. Call the number listed and make an appointment right away. Please follow your discharge instructions from today in the meantime. With your discharge, we have provided such care and pray you improve. Part of this care involves your responsibility to obtain medications prescribed, follow after care instructions, change risky behaviors, return to the ED if not improving, and/or make appropriate follow up arrangements as directed and discussed. This was not a substitute for, nor an effort to provide, complete and ongoing medical care. If you need a refill or different medications, you must return or see your pcp as we cannotprovide refills or new treatments without a new encounter. ANALYSIS OF X-RAYS AND LABS Any x-ray findings you may have had today are considered only preliminary until they are officiallyread by the radiologist. If you had x-rays or CAT scans today, there may be other things seen afterthe radiologist looks at the films. You might be contacted advising you of any new findings. If youare still experiencing problems, you may need additional x-rays or images taken. If any labs were sent out and not run today, you also might be contacted advising you of any new results. These discrepancies may require you to return to the ER to be re-evaluated. The results may even alter your treatment course. LEARN YOUR MEDICATIONS If you have been given a prescription, you are responsible for properly filling your prescription and following the instructions exactly. Be sure to get it filled right away and read the medication instructions provided by the pharmacy. Do not drive or operate machinery until you know what effect the medicine will have on your body. If your prescription makes you tired, or sleepy, or contains narcotics, you should not drink alcohol, including beer and wine, drive, or participate in any other activities that you need to be clear-headed for. If you do not think it is helping, call your doctor. Do not increase how much you take or how often you take it without talking to your doctor first. Do not take other people???s medications. Failure to take your medications properly can lead to medicalproblems, including but not limited, to overdose or . If you need medication refills, please contact your primary doctor. We do not provide medication refills. KNOW YOUR DIAGNOSIS Chiqui Barrow, you have also been given additional sheets of paper explaining your diagnosis, prescriptions, home care instructions and any warning signs. Read this information carefully. By signing this discharge form, or having your responsible green party sign, you agree that you have received thisinformation and are responsible for reading it. Please ask questions and ask the nurse to go over an ything you don???t understand before you leave. After that time, you are responsible for knowing your medical condition, how that condition is being treated and what things require an immediate reevaluation. RESPOND TO WARNING SIGNS Chiqui Barrow, If your symptoms do not improve within the timeline we discussed, or they become worse, either contact your primary care physician immediately or come back to the emergency department. In the event of an emergency, dial 9-1-1 for an ambulance. Medical emergencies include but are not limited to: sudden headache, fever, bleeding, dizziness, paralysis, chest pain, stomach pain, nausea and vomiting, worsening pain, unable to keep fluids down or any other symptoms that worry you. Remember that the emergency department is open 24 hours a day, every day, and we will be happy to seeyou at any time. We strive to make your ER experience a pleasant one. If you receive a survey in the mail I ask you to fill it out and give us HIGH dinero to let us know how we are doing. THANK YOU! CTOR OF OUTREACH * Attachments The following attachments cannot be sent through Care Everywhere. * Pulp-Space Infection ([place]) documented in this encounter Medications at Time [...] as of this encounter ED Notes * Aram Waters PA - 11/13/2020 8:55 PM CST HISTORY OF PRESENT ILLNESS Chiqui Romo, a 25 y.o. female presents to the ED with a Chief Complaint of Hand Swelling Subjective Chiqui Romo is a 25 y.o. female that presents to the [facility] emergency room complaining of rightthumb pain and swelling for the last couple of days. There is no history of trauma. She did notice an area that seem to be open. History provided by: The patient engagement engineer used: No Arrived by: Private vehicle Arrived from: Home Hand Swelling Associated symptoms: no fatigue, no fever and no neck pain REVIEW OF SYSTEMS Review of Systems Constitutional: Negative for activity change, chills, fatigue and fever. Respiratory: Negative. Negative for cough, choking, chest tightness, shortness of breath and wheezing. Cardiovascular: Negative. Negative for chest pain, palpitations and leg swelling. Gastrointestinal: Negative. Negative for abdominal pain. Endocrine: Negative. Genitourinary: Negative. Musculoskeletal: Negative for neck pain. Skin: Positive for wound. Allergic/Immunologic: Negative. Neurological: Negative for dizziness, weakness, light-headedness and headaches. Hematological: Negative. Psychiatric/Behavioral: Negative. PAST MEDICAL HISTORY REVIEWED MEDICAL: Patient has a past medical history of Patient denies relevant medical history and Viral hepatitis. SURGICAL: Patient has a past surgical history that includes pt denies relevant surgical history. FAMILY: Patient's family history is not on file. SOCIAL: reports that she has never smoked. She has never used smokeless tobacco. No history on file. Social History Other Topics Concern ??? Not on file ALLERGIES Zithromax [azithromycin] HOME MEDICATIONS Discharge Medication List as of 11/13/2020 11:19 PM START taking these medications Details amoxicillin-clavulanate (AUGMENTIN) 875-125 mg tablet Take 1 Tablet by mouth every 12 hours., Disp-20 Tablet, R-None CONTINUE these medications which have NOT CHANGED Details benzonatate (TESSALON) 200 mg capsule Take 1 Capsule (200 mg) by mouth 3 times daily as needed for Cough., Disp-30 Capsule, R-0 Objective PHYSICAL EXAM INITIAL VS BP: 132/85 (11/13/202109), Heart Rate: 70 bpm (11/13/202109), Resp: 20 (11/13/202109), Pulse: (not recorded), Temp: 98 ??F (36.7 ??C) (11/13/202109), Temp src: Temporal (11/13/202109), SpO2: 100% (11/13/202109), Height: 5' 1 (154.9 cm) (11/13/202109), Weight: 49.9 kg (110 lb) (11/13/202109), BMI (Calculated): 20.8 (11/13/202109) No LMP recorded. Physical Exam Vitals signs and nursing note reviewed. Constitutional: General: She is not in acute distress. Appearance: She is well-developed. She is not diaphoretic. HENT: Head: Normocephalic and atraumatic. Nose: Nose normal. Eyes: General: No scleral icterus. Right eye: No discharge. Left eye: No discharge. Conjunctiva/sclera: Conjunctivae normal. Neck: Musculoskeletal: Normal range of motion and neck supple. Thyroid: No thyromegaly. Trachea: No tracheal deviation. Cardiovascular: Rate and Rhythm: Normal rate and regular rhythm. Heart sounds: Normal heart sounds. No murmur. No friction rub. No gallop. Pulmonary: Effort: Pulmonary effort is normal. No respiratory distress. Breath sounds: Normal breath sounds. No stridor. No wheezing or rales. Chest: Chest wall: No tenderness. Abdominal: General: Bowel sounds are normal. There is no distension. Palpations: Abdomen is soft. There is no mass. Tenderness: There is no abdominal tenderness. There is no guarding or rebound. Musculoskeletal: Normal range of motion. Skin: General: Skin is warm and dry. Coloration: Skin is not pale. Findings: Erythema present. No rash. Comments: The right distal thumb pad has signs of infection with an open area, erythema, significant pain to palpation. This is not worrisome for osteomyelitis. Neurological: Mental Status: She is alert and oriented to person, place, and time. Cranial Nerves: No cranial nerve deficit. Motor: No abnormal muscle tone. Coordination: Coordination normal. Deep Tendon Reflexes: Reflexes are normal and symmetric. Reflexes normal. Psychiatric: Behavior: Behavior normal. Thought Content: Thought content normal. DIAGNOSTICS LAB: No data to display RADIOLOGY: XR FINGER(S) RIGHT Radiologist Impression 1. No radiographic evidence of acute osseous process in the right thumb. 2. No evidence of radiopaque foreign body. XR FINGER(S) RIGHT EKG: PROCEDURES Procedures MEDICAL DECISION MAKING AND PLAN OF CARE MDM Summary Statement: Patient presented to the ED with right thumb discomfort, signs of infection. Images negative for any foreign body or acute osseous process. I have reviewed previous: notes I have reviewed current: imaging I have reviewed nursing notes related to past medical history, social history, and review of systems and agree, unless otherwise noted. Clinical Course: Patient medically stable for discharge from the emergency department. Dr. Oconnell was readily available for consultation during the patient's visit to the ER. Patient states that they feel comfortable with all findings and plan. The patient has been re-examined and the patient has been informed of all results and diagnosis.?? The patient is ready for discharge.?? The patient has been given instructions regarding their diagnosis, expectations, follow up and return precautions regarding their diagnosis. The patient was informed that emergent conditions may arise and to return to the ED for new, worsening or any or concerning conditions.?? The importance of follow up with the patient's PCP has been discussed with the patient as well as to keep any recommended referral's made in the ED.?? The patient was instructed to take all medications as prescribed/recommended.?? Understanding of the discharge instructions was verbalized by the patient.?? All patient questions were addressed prior to discharge. (Sections of this note were created using a voice-recognition transcribing system. Typographical errors and incorrect words or phrases may have been missed during proofreading. Please interpret accordingly.)?? Discharge Medication List as of 11/13/2020 11:19 PM START taking these medications Details amoxicillin-clavulanate (AUGMENTIN) 875-125 mg tablet Take 1 Tablet by mouth every 12 hours., Disp-20 Tablet, R-None CONTINUE these medications which have NOT CHANGED Details benzonatate (TESSALON) 200 mg capsule Take 1 Capsule (200 mg) by mouth 3 times daily as needed for Cough., Disp-30 Capsule, R-0 LAST VS BP: 132/85 (11/13/202109), Heart Rate: 70 bpm (11/13/202109), Resp: 20 (11/13/202109), Pulse: (not recorded), Temp: 98 ??F (36.7 ??C) (11/13/202109), Temp src: Temporal (11/13/202109), SpO2: 100% (11/13/202109) CLINICAL IMPRESSION Final diagnoses: [L03.011] Felon of finger of right hand (Primary) DISPOSITION, EDUCATION AND MEDICATION RECONCILIATION Medications reconciled. See after visit summary for patient education on discharged patients. ED Disposition ED Disposition Condition User Date/Time Comment Discharge Aram Proctor PA Mon Nov 13, 2020 11:16 PM ATTESTATION STATEMENTS CTOR OF OUTREACH documented in this encounter Plan of Treatment Not on file documented as of this encounter Procedures Procedure Name Priority Date/Time Associated Diagnosis Comments XR FINGER(S) RIGHT Stat 11/13/2020 11 :05 PM DIRECTOR OF OUTREACH documented in this encounter Results * XR FINGER(S) RIGHT (11/13/2020 11:05 PM DIRECTOR OF OUTREACH) Anatomical Region Laterality Modality Wrist / Hand Computed Radiogr aphy 11/13/2020 11:0 6 PM DIRECTOR OF OUTREACH Impressions 11/13/2020 11:09 PM DIRECTOR OF OUTREACH 1. No radiographic evidence of acute osseous process in the right thumb. 2. No evidence of radiopaque foreign body. Narrative 11/13/2020 11:09 PM DIRECTOR OF OUTREACH PROCEDURE: XR FINGER(S) RIGHT ([id number]) DATE: 11/13/2020 11:05 PM HISTORY: Foreign body, pain COMPARISON: None FINDINGS: AP, oblique and lateral views of the right thumb were provided without comparison. There is no evidence of a fracture, dislocation or destructive osseous lesion. Joint spaces and alignment are maintained. Soft tissues are normal. No radiopaque foreign bodies. Procedure Note JavierEdil, DO - 11/13/2020 PROCEDURE: XR FINGER(S) RIGHT ([id number]) DATE: 11/13/2020 11:05 PM HISTORY: Foreign body, pain COMPARISON: None FINDINGS: AP, oblique and lateral views of the right thumb were provided without comparison. There is no evidence of a fracture, dislocation or destructive osseous lesion. Joint spaces and alignment are maintained. Soft tissues are normal. No radiopaque foreign bodies. IMPRESSION: 1. No radiographic evidence of acute osseous process in the right thumb. 2. No evidence of radiopaque foreign body. Aram [facility] documented in this encounter Visit Diagnoses Diagnosis Felon of finger of right hand- Primary documented in this encounter Care Teams Managed Care Manager Relationship Specialty Start Date End Date Wilfrido Burnette MD [address] [facility] [address] [facility] [address] [place] [phone] PCP - General Family Practice 03/26/17 Yolis Holt APRN [address] [facility] [place] [phone] PCP - Primary Care APP Family Practice 03/26/17 documented as of this encounter
--- OUTSIDE RECORDS SUMMARY | 2024-11-04 11:47 | XMS_ITS | Encounter Summary ---
Author Organization [facility] Address [address] [place] [address] Care Team Providers Care Sales Architect Name Role Phone Wilfrido Burnette MD Primary Care Provider Yolis Holt ALCOHOL RUBBER Unavailable [phone] Reason for Visit * Reason Comments Headache pt states a child fe ll on her face and head this afternoon. she did not lose consciousness. she did have a nosebleed earlier and has had a VALDES since. her Mom states she thinks her pupils were 2 different sizes earlier so they decided to come in and be seen. Encounter Details Date Type Department Care Team (Late st Contact Info) Description 05/07/2018 9:14 PM CDT - 05/07/2018 11:04 PM CDT Emergency [facility] Emergency Department [address] [place] [id number] Dottie Hyman MD NO ADDRESS ON FILE Closed head injury, initial encounter (Primary Dx); Epistaxis; Periorbital pain, right Discharge Disposition: Home or Self Care Social History Tobacco Use Types Packs/Day Years Used Date Smoking Tobacco: Never Smokeless Tobacco: Never Sex and Gender Information Value Date Recorded Sex Assigned at Not on file Gender Identity Not on file Sexual Orientation Not on file documented as of this encounter Last Filed Vital Signs Vital Sign Reading Time Taken Comments Blood Pressure 116/79 05/07/2018 10:30 PM CDT Pulse 73 05/07/2018 10:30 PM CDT Temperature 36.2 ??C (97.2 ??F) 05/07/2018 8:57 PM CD T Respiratory Rate 17 05/07/2018 8:57 PM CDT Oxygen Saturation 97% 05/07/2018 10:30 PM CDT Inhaled Oxygen Concentration - - Weight 48.8 kg (107 lb 9.6 oz) 05/07/2018 8:57 P M CDT Height 154.9 cm (5' 1 ) 05/07/2018 8:57 PM CDT Body Mass Index 20.33 05/07/2018 8:57 PM CDT documented in this encounter Discharge Instructions * Attachments The following attachments cannot be sent through Care Everywhere. * Head Injury: Closed: General Info (Chadian) * Nosebleeds (Chadian) documented in this encounter ED Notes * Maral Mcrae RN - 05/07/2018 10:[address] Hyman at bedside. * Dottie Hyman MD - 05/07/2018 8:51 PM CDT HISTORY OF PRESENT ILLNESS Chiqui Romo, a 22 y.o. female presents to the ED with a Chief Complaint of Headache Subjective Headache, pt states a child fell on her face and head this afternoon. she did not lose consciousness. she did have a nosebleed earlier and has had a VALDES since. her Mom states she thinks her pupils were 2 different sizes earlier so they decided to come in and be seen. History provided by: The patient and medical records ramp service man used: No Arrived by: Private vehicle Arrived from: Home Head Injury Location: Frontal Time since incident: 8 hours Mechanism of injury: fall Mechanism of injury comment: A child fell on pts face Incident location: Work Pain details: Quality: Aching, pressure and sharp Radiates to: Face Severity: Moderate Timing: Constant Progression: Worsening Chronicity: New Relieved by: Nothing Worsened by: Pressure Ineffective treatments: None tried Associated symptoms: no blurred vision, no difficulty breathing, no disorientation, no double vision, no focal weakness, no headaches, no hearing loss, no loss of consciousness, no memory loss, no nausea, no neck pain, no numbness, no seizures, no tinnitus and no vomiting Risk factors: no alcohol use, no aspirin use, not elderly, no obesity and no occupational exposure REVIEW OF SYSTEMS Review of Systems Constitutional: Negative for fatigue and fever. HENT: Positive for facial swelling. Negative for congestion, dental problem, hearing loss and tinnitus. Eyes: Negative for blurred vision, double vision, photophobia and visual disturbance. Respiratory: Negative for cough, chest tightness, shortness of breath, wheezing and stridor. Cardiovascular: Negative for chest pain, palpitations and leg swelling. Gastrointestinal: Negative for abdominal pain, constipation, diarrhea, nausea and vomiting. Endocrine: Negative. Genitourinary: Negative for dysuria and hematuria. Musculoskeletal: Negative for myalgias, neck pain and neck stiffness. Skin: Negative. Allergic/Immunologic: Negative. Neurological: Negative. Negative for focal weakness, seizures, loss of consciousness, numbness and headaches. Hematological: Negative. Psychiatric/Behavioral: Negative. Negative for memory loss. PAST MEDICAL HISTORY REVIEWED MEDICAL: Patient has [...] Other Topics Concern ??? Not on file PROBLEM LIST: Patient does not have a problem list on file. ALLERGIES Zithromax [azithromycin] HOME MEDICATIONS Patient's Home Medications Current Home Medications CYCLOBENZAPRINE (FLEXERIL) 10 MG TABLET ERGOCALCIFEROL (VITAMIN D2) 50,000 UNIT CAPSULE OTHER OTHER Medications Modified during this Encounter Medications Discontinued during this Encounter Objective PHYSICAL EXAM INITIAL VS BP: 124/78 (05/07/182056), Heart Rate: 85 bpm (05/07/182056), Resp: 17 (05/07/182056), Temp: 97.2 ??F (36.2 ??C) (05/07/182056), Temp src: Temporal (05/07/182056), SpO2: 100 % (05/07/182056), Height: 5' 1 (154.9 cm) (05/07/182056), Weight: 48.8 kg (107 lb 9.6 oz) (05/07/182056), BMI (Calculated): 20.34 (05/07/182056) No LMP recorded. Physical Exam Constitutional: She is oriented to person, place, and time. She appears well- developed and well-nourished. No distress. HENT: Head: Normocephalic and atraumatic. Nose: Nose normal. Mouth/Throat: Oropharynx is clear and moist. No oropharyngeal exudate. Minimal trace edema to R nasal lacrimal area, no bruising noted, no septal hematoma, no active nosebleed, normal EOMI, no signs of orbital entrapment. Eyes: Conjunctivae and EOM are normal. Pupils are equal, round, and reactive to light. Right eye exhibits no discharge. Left eye exhibits no discharge. No scleral icterus. Neck: Normal range of motion. Neck supple. No JVD present. No tracheal deviation present. Cardiovascular: Normal rate, regular rhythm, normal heart sounds and intact distal pulses. Exam reveals no gallop and no friction rub. No murmur heard. Pulmonary/Chest: Effort normal and breath sounds normal. No stridor. No respiratory distress. She has no wheezes. She has no rales. She exhibits no tenderness. Abdominal: Soft. Bowel sounds are normal. She exhibits no distension and no mass. There is no tenderness. There is no rebound and no guarding. No hernia. Genitourinary: Genitourinary Comments: Deferred as there is no complaint Musculoskeletal: Normal range of motion. She exhibits no edema or tenderness. Lymphadenopathy: She has no cervical adenopathy. Neurological: She is alert and oriented to person, place, and time. No cranial nerve deficit. She exhibits normal muscle tone. Coordination normal. Skin: Skin is warm and dry. Capillary refill takes less than 2 seconds. No rash noted. She is not diaphoretic. No erythema. No pallor. Psychiatric: She has a normal mood and affect. Her behavior is normal. Judgment and thought contentnormal. Nursing note and vitals reviewed. DIAGNOSTICS LAB: URINALYSIS WITH REFLEX CULTURE - Abnormal Result Value COLOR UA Blood Tinged (*) CLARITY UA Cloudy (*) SPECIFIC GRAVITY UA 1.025 PH UA 7.0 LEUKOCYTE ESTERASE UA Trace (*) NITRITE UA Negative PROTEIN UA 2+ (*) GLUCOSE UA Negative KETONES UA Trace (*) UROBILINOGEN UA 0.2 BILIRUBIN UA Negative BLOOD UA 3+ (*) WBC UA 51-100 (*) RBC UA >100 (*) BACTERIA UA 1+ (*) EPITHELIAL CELLS, URINE >25 (*) AMORPHOUS CRYSTAL Present (*) COMMENT, URINE Mucous: Many POC , URINE - Normal HCG QUAL URINE Negative INTERNAL KIT QC Pass KIT LOT NUMBER [id number] KIT EXPIRATION DATE 08-16-2018 URINE CULTURE RADIOLOGY: No orders to display No orders to display EKG: PROCEDURES Procedures MEDICAL DECISION MAKING AND PLAN OF CARE The patient has been re-examined and the patient has been informed of all results and diagnosis. The patient is ready for discharge. The patient has been given instructions regarding their diagnosis,expectations, follow up and return precautions regarding their diagnosis. The patient was informed that emergent conditions may arise and to return to the ED for new, worsening or any or concerning conditions. The importance of follow up with the patient's PCP has been discussed with the patient aswell as to keep any recommended referral's made in the ED. The patient was instructed to take all medications as prescribes/recommended. Understanding of the discharge instructions was verbalized by the patient. All patient questions were addressed prior to discharge. The patient is to follow up with Follow-up Information Call Wilfrido Burnette MD. Specialties: Family Practice, Obstetrics Why: NOEL for follow up Contact information: [address] [place] [phone] and was sent home with . New Prescriptions for this Encounter MDM I have reviewed previous: notes I have reviewed current: labs I have reviewed nursing notes related to past medical history, social history, and review of systems and agree, unless otherwise noted. . New Prescriptions for this Encounter LAST VS BP: 105/65 (05/07/182144), Heart Rate: 85 bpm (05/07/182056), Resp: 17 (05/07/182056), Temp: 97.2 ??F (36.2 ??C) (05/07/182056), Temp src: Temporal (05/07/182056), SpO2: 100 % (05/07/182144) CLINICAL IMPRESSION Final diagnoses: [S09.90XA] Closed head injury, initial encounter (Primary) [R04.0] Epistaxis [H57.11] Periorbital pain, right DISPOSITION, EDUCATION AND MEDICATION RECONCILIATION Medications reconciled. See after visit summary for patient education on discharged patients. ED Disposition ED Disposition Condition User Date/Time Comment Discharge Stable Dottie Hyman MD [facility] May 07, 2018 10:29 PM Home, stable ATTESTATION STATEMENTS documented in this encounter Plan of Treatment Not on file documented as of this encounter Procedures Procedure Name Priority Date/Time Associated Diagnosis Comments POC , URINE Stat 05/07/2018 9:32 PM CDT URINALYSIS WITH REFLEX CULTURE Stat 05/07/2018 9:30 PM CDT URINE CULTURE Stat 05/07/2018 9:30 PM CDT documented in this encounter Results * POC , URINE (05/07/2018 9:32 PM CDT) Pathologist [facility] HCG QUAL URINE Negative Negative INTERNAL KIT QC Pass Pass KIT LOT NUMBER POC [id number] KIT EXPIRATION DATE POC 08-16-2018 Urine 05/07/2018 9:32 PM CDT Dottie Hyman MD POINT OF CARE TESTIN G * URINE CULTURE (05/07/2018 9:30 PM CDT) [facility] CULTURE 50,000-99,000 cfu/mL Polymicrobial growth consistent with normal urethral jackson 05/09/2018 10:08 AM CDT [facility] Urine URINE SPECIMEN OBTAINED BY CLEAN CATCH PROCEDURE / Unknown Collection / Unknown 05/07/2018 9:30 PM CDT 05/07/2018 10:02 PM CDT Dottie Hyman MD MICROBIOLOGY - GENER AL ORDERABLES [facility] CLIA# [id number] [address] [place] [address] * (ABNORMAL) URINALYSIS WITH REFLEX CULTURE (05/07/2018 9:30 PM CDT) Pathologist [facility] COLOR UA Blood Tinged(A) Pale to dark yellow 05/07/2018 10:02 PM [facility] CLARITY UA Cloudy(A) Clear 05/07/2018 10:02 PM [facility] SPECIFIC GRAVITY UA 1.025 1.003 - 1.035 05/07/2018 10:02 PM [facility] PH UA 7.0 5.0 - 8.0 05/07/2018 10:02 PM [facility] LEUKOCYTE ESTERASE UA Trace(A) Negative 05/07/2018 10:02 PM [facility] Comment: For patients with 'trace' results, consider ordering a culture and sensitivity if clinically indicated. NITRITE UA Negative Negative 05/07/2018 10:02 PM [facility] PROTEIN UA 2+(A) Negative 05/07/2018 10:02 PM [facility] GLUCOSE UA Negative Negative 05/07/2018 10:02 PM [facility] KETONES UA Trace(A) Negative 05/07/2018 10:02 PM [facility] UROBILINOGEN UA 0.2 <2.0 mg/dL 8 10:02 PM [facility] BILIRUBIN UA Negative Negative 05/07/2018 10:02 PM [facility] BLOOD UA 3+(A) Negative 05/07/2018 10:02 PM [facility] WBC UA 51-100(A) 0 - 2 /hpf 05/07/2018 10:02 PM [facility] RBC UA >100(A) 0 - 2 /hpf 05/07/2018 10:02 PM [facility] BACTERIA UA 1+(A) Negative /hpf 05/07/2018 10:02 PM [facility] EPITHELIAL CELLS, URINE >25(A) 0 - 5 /hpf 05/07/2018 10:02 PM [facility] AMORPHOUS CRYSTAL Present(A) Absent 05/07/2018 10:02 PM CDT [facility] Comment:Present COMMENT, URINE Mucous: Many 05/07/20 18 10:02 PM CDT [facility] Comment:Many Urine URINE SPECIMEN OBTAINED BY CLEAN CATCH PROCEDURE / Unknown Collection / Unknown 05/07/2018 9:30 PM CDT 05/07/2018 9:40 PM CDT Narrative [facility] - 05/07/2018 10:02 PM CDT Based on results, a urine culture has been reflexed. Dottie Hyman MD URINE ORDERABLES [facility] CLIA# [id number] [address] [place] [address] documented in this encounter Visit Diagnoses Diagnosis Closed head injury, initial encounter- Primary Epistaxis Periorbital pain, right documented in this encounter Care Teams Sales Architect Relationship Specialty Start Date End Date Wilfrido Burnette MD [address] [place] [address] PCP - General Family Practice 03/26/17 Yolis Holt APRN [address] [place] [address] [phone] PCP - Primary Care APP1 Family Practice 03/26/17 documented as of this encounter
--- OUTSIDE RECORDS SUMMARY | 2024-11-04 11:47 | XMS_ITS | Encounter Summary ---
Author Organization [facility] Address [address] [place] [address] Care Team Providers Care Breaker Tender Name Role Phone Wilfrido Burnette MD Primary Care Provider Yolis Holt BARREL LINE OPERATOR Unavailable [phone] Reason for Visit * Eval and Treat (Routine) - Closed Specialty Diagnoses / Procedures Referred By Nicol vaughan Referred To Contact Physical Therapy Diagnoses Acute bilateral low back pain without sciatica Yolis Holt H, BARREL LINE OPERATOR [address] [place] [address] [facility] [address] [place] [phone] Referral ID Status Reason Start Date Expiration Date Visits Re quested Visits Authorized [id number] Closed 04/18/2017 04/18/2018 6 6 Encounter Details Date Type Department Care Team (Late st Contact Info) Description 05/08/2017 2:11 PM CDT - 05/08/2017 11:59 PM CDT Hospital Encounter [facility] Physical Therapy [facility] [address] [place] [phone] Yolis Holt H, BARREL LINE OPERATOR [address] [place] [phone] Johana Galvin, Lottery Manager Acute bilateral low back pain without sciatica Discharge Disposition: Home or Self Care Social History Tobacco Use Types Packs/Day Years Used Date Smoking Tobacco: Never Sex and Gender Information Value Date Recorded Sex Assigned at Not on file Gender Identity Not on file Sexual Orientation Not on file documented as of this encounter Miscellaneous Notes * Therapy Treatment - Johana Galvin Lottery Manager - 05/08/2017 4:19 PM CDT Physical Therapy Daily Note Date: 05/08/17 Start Time: 215 End Time: 311 Total Time: 56 minutes Area Treated: Thoracolumbar and L LE Subjective: Pain level prior to treatment: Are you having pain right now? Yes Rate your pain on a scale of 1 - 10: 2 Patient states pain is getting better. Medication changes since last visit: No Medical Dx change since last visit: No Allergic drug response since last visit: No Significant operation and or procedure since last visit: No Objective: Patient required cues for proper positioning with exercises. Modalities Used: [id number] Interferential @ 20 intensity 10 minutes, [id number] Hot Pack/Cold Pack x 10 minutes in order to decrease pain, improve ROM, improve tissue mobility, decrease inflammation, improve exercise tolerance to assist pt to be able to perform ADLs with greater ease. Modality performed at end of session. Exercises: Chiqui performed the following exercises: Nustep, lumbar extension, prone thoracic press ups, trunk rotation, hip abduction, SL bridge, bird dogs with 2# dowel, lateral step ups, bruneian ball roll outs [id number]: Therapeutic Exercise performed for 41 minutes Home Exercise Program/Instruction: Continue Assessment-Patient's Response to Treatment/Functional Progress: Patient had no complaints of increased pain with exercises and had no pain at end of session. Pain Level After Treatment: Are you having pain right now? No Plan: Continue current treatment plan Pt will continue to work on improve bilateral hip strength, and lumbar ROM in order to return to PLOF without pain and limitations. Therapist's Signature: Johana Galvin Lottery Manager documented in this encounter Plan of Treatment Not on file documented as of this encounter Visit Diagnoses Not on filedocumented in this encounter Care Teams Breaker Tender Relationship Specialty Start Date End Date Wilfrido Burnette MD [address] [facility] [address] [place] [phone] PCP - General [facility] 03/26/17 Yolis Holt APRN [address] [facility] [place] [phone] PCP - Primary Care APP1 Family Practice 03/26/17 documented as of this encounter
--- OUTSIDE RECORDS SUMMARY | 2024-11-04 11:47 | XMS_ITS | Encounter Summary ---
Author Organization [facility] Address [address] [place] [address] Care Team Providers Care Control Clerk Name Role Phone Wilfrido Burnette MD Primary Care Provider Yolis Holt MACHINE DEBURRER Unavailable [phone] Reason for Visit * Reason Comments Cough Headache Nausea Encounter Details Date Type Department Care Team (Latest Contact Info) Description 11/01/2018 5:00 PM DYE REEL OPERATOR Office Visit [facility] [address] [place] [phone] Sanaz Luna, MACHINE DEBURRER [address] [place] [phone] Acute nasopharyngitis (common cold) (Primary Dx); Laryngitis; Cough Social History Tobacco Use Types Packs/Day Years Used Date Smoking Tobacco: Never Smokeless Tobacco: Never Sex and Gender Information Value Date Recorded Sex Assigned at Not on file Gender Identity Not on file Sexual Orientation Not on file documented as of this encounter Last Filed Vital Signs Vital Sign Reading Time Taken Comments Blood Pressure 118/62 11/01/2018 4:54 PM DYE REEL OPERATOR Pulse 89 11/01/2018 4:54 PM DYE REEL OPERATOR Temperature 36.6 ??C (97.9 ??F) 11/01/2018 4:54 PM CS T Respiratory Rate 18 11/01/2018 4:54 PM DYE REEL OPERATOR Oxygen Saturation 99% 11/01/2018 4:54 PM DYE REEL OPERATOR Inhaled Oxygen Concentration - - Weight 47.6 kg (105 lb) 11/01/2018 4:54 PM DYE REEL OPERATOR Height 154.9 cm (5' 1 ) 11/01/2018 4:54 PM DYE REEL OPERATOR Body Mass Index 19.84 11/01/2018 4:54 PM DYE REEL OPERATOR documented in this encounter Patient Instructions * Patient Instructions* Sanaz Garcia, MACHINE DEBURRER - 11/01/2018 5:08 PM DYE REEL OPERATOR Images from the original note were not included. One Hour Translation. Sinusitis: Care Instructions Your Care Instructions Sinusitis is an infection of the lining of the sinus cavities in your head. Sinusitis often followsa cold. It causes pain and pressure in your head and face. In most cases, sinusitis gets better on its own in 1 to 2 weeks. But some mild symptoms may last for several weeks. Sometimes antibiotics are needed. Follow-up care is a campbell part of your treatment and safety. Be sure to make and go to all appointments, and call your doctor if you are having problems. It's also a good idea to know your test resultsand keep a list of the medicines you take. How can you care for yourself at home? ?? Take an epic-pky-noggjba pain medicine, such as acetaminophen (Tylenol), ibuprofen (Advil, Motrin), or naproxen (Aleve). Read and follow all instructions on the label. ?? If the doctor prescribed antibiotics, take them as directed. Do not stop taking them just because you feel better. You need to take the full course of antibiotics. ?? Be careful when taking mnbr-pdi-gjyvghv cold or flu medicines and Tylenol at the same time. Manyof these medicines have acetaminophen, which is Tylenol. Read the labels to make sure that you are not taking more than the recommended dose. Too much acetaminophen (Tylenol) can be harmful. ?? Breathe warm, moist air from a steamy shower, a hot bath, or a sink filled with hot water. Avoidcold, dry air. Using a humidifier in your home may help. Follow the directions for cleaning the machine. ?? Use saline (saltwater) nasal washes to help keep your nasal passages open and wash out mucus andbacteria. You can buy saline nose drops at a grocery store or drugstore. Or you can make your own at home by adding 1 teaspoon of salt and 1 teaspoon of baking soda to 2 cups of distilled water. If you make your own, fill a bulb syringe with the solution, insert the tip into your nostril, and squeeze gently. Blow your nose. ?? Put a hot, wet towel or a warm gel pack on your face 3 or 4 times a day for 5 to 10 minutes eachtime. ?? Try a decongestant nasal spray like oxymetazoline (Afrin). Do not use it for more than 3 days vy row. Using it for more than 3 days can make your congestion worse. When should you call for help? Call your doctor now or seek immediate medical care if: ? You have new or worse swelling or redness in your face or around your eyes. ? You have a new or higher fever. ??Watch closely for changes in your health, and be sure to contact your doctor if: ? You have new or worse facial pain. ? The mucus from your nose becomes thicker (like pus) or has new blood in it. ? You are not getting better as expected. Where can you learn more? Go to https://www.Loccie.net/patientEd Enter I933 in the search box to learn more about Sinusitis: Care Instructions. Current as of: February 11, 2018 Content Version: 11.8 ?? [id number] [employer]. Care instructions adapted under license by your healthcare professional. If you have questions about a medical condition or this instruction, always ask your healthcare professional. These instructions may not represent the values of this healthcare organization. [employer] disclaims any warranty or liability for your use of this information. REEL OPERATOR documented in this encounter Progress Notes * Sanaz Garcia APRN - 11/01/2018 4:56 PM CST SUBJECTIVE: Chief Complaint Patient presents with ??? Cough ??? Headache ??? Nausea Chiqui Romo is a 22 y.o. female with hoarse voice, nasal congestion, drainage, cough (worse atnight) for 2 days. Other symptoms: fatigue, body aches, VALDES. Temperature not elevated at home. No myalgias, nausea, vomiting, or diarrhea. Taking fluids well. Known exposure to sick contacts. She has tried theraflu for the symptoms with some improvement. Patient does not have a history of asthma. She does not smoke cigarettes. She has not had a flu shot this year. Past Medical History: Diagnosis Date ??? Patient denies relevant medical history ??? Viral hepatitis Current Outpatient Prescriptions Medication Sig Dispense Refill ??? ipratropium bromide (ATROVENT) 0.03 % [place], Non-Aerosol Administer 2 Sprays in each nostril 2 times daily. 30 mL 0 ??? pseudoephedrine (SUDAFED) 30 mg tablet Take 1 Tablet (30 mg) by mouth every 6 hours as needed for Congestion. 30 Tablet 0 ??? benzonatate (TESSALON) 200 mg capsule Take 1 Capsule (200 mg) by mouth 3 times daily. 30 Capsule 0 Current Facility-Administered Medications Medication Dose Route Frequency Provider Last Rate Last Dose ??? dexamethasone (DECADRON) injection 4 mg 4 mg IM ONCE Sanaz Garcia APRN ??? methylPREDNISolone acetate (DEPO-Medrol) 40 mg/mL injection 40 mg 40 mg IM ONCE Camilla Garcia, MACHINE DEBURRER OBJECTIVE: BP 118/62 (BP Location: Left arm, Patient Position (BP): Sitting, BP Cuff Size: Adult) Pulse 89 Temp 97.9 ??F (36.6 ??C) (Temporal) Resp 18 Ht 5' 1 (1.549 m) Wt 47.6 kg (105 lb) SpO2 99% BMI 19.84 kg/m?? General appearance: alert, well appearing, and in no distress. Ears: bilateral TM's and external ear canals normal Nose: mucosal congestion and clear rhinorrhea Oropharynx: mucous membranes moist, pharynx erythematous and without lesions. Voice is hoarse. Neck: supple, no significant adenopathy Lungs: clear to auscultation, no wheezes, rales or rhonchi, symmetric air entry CV: RRR no murmer No results found for this visit on 11/01/18 (from the past 24 hour(s)). ASSESSMENT & PLAN: ICD-10-CM ICD-9-CM 1. Acute nasopharyngitis (common cold) J00 460 ipratropium bromide (ATROVENT) 0.03 % [place], Non-Aerosol pseudoephedrine (SUDAFED) 30 mg tablet benzonatate (TESSALON) 200 mg capsule MI INJECTION THERAP/PROPH/DIAGNOST IM OR SUBCUT dexamethasone (DECADRON) injection 4 mg methylPREDNISolone acetate (DEPO-Medrol) 40 mg/mL injection 40 mg 2. Laryngitis J04.0 464.00 MI INJECTION THERAP/PROPH/DIAGNOST IM OR SUBCUT dexamethasone (DECADRON) injection 4 mg methylPREDNISolone acetate (DEPO-Medrol) 40 mg/mL injection 40 mg 3. Cough R05 786.2 benzonatate (TESSALON) 200 mg capsule Explained lack of effectiveness of antibiotics for viral illnesses. RX as above. Patient care information provided. Symptomatic therapy suggested: use acetaminophen, ibuprofen, push fluids, salt water gargles, humidification. Call or return to clinic prn if these symptoms worsen or fail to improve as anticipated. Sanaz Garcia APRN REEL OPERATOR documented in this encounter Plan of Treatment Not on file documented as of this encounter Visit Diagnoses Diagnosis Acute nasopharyngitis (common cold)- Primary Laryngitis Acute laryngitis, without mention of obstruction Cough documented in this encounter Administered Medications Inactive Administered Medications - up to 3 most recent administrations Medication Order MAR Action Action Date Dose Rate Site dexamethasone (DECADRON) injection 4 mg 4 mg, IM, ONE TIME ONLY, 1 dose, On 11/01/18 at 1715, Routine Given 11/01/2018 5:10 PM DYE REEL OPERATOR 4 mg Ventrogluteal, Right methylPREDNISolone acetate (DEPO-Medrol) 40 mg/mL injection 40 mg 40 mg, IM, ONE TIME ONLY, 1 dose, On 11/01/18 at 1715, Routine Given 11/01/2018 5:10 PM DYE REEL OPERATOR 40 mg Ventrogluteal, Right documented in this encounter Care Teams Control Clerk Relationship Specialty Start Date End Date Wilfrido Burnette MD [address] [place] [address] PCP - General Family Practice 03/26/17 Yolis Holt APRN [address] [place] [address] [place] [phone] PCP - Primary Care APP1 Family Practice 03/26/17 documented as of this encounter
--- OUTSIDE RECORDS SUMMARY | 2024-11-04 11:47 | XMS_ITS | Encounter Summary ---
Author Organization [facility] Address [address] [place] [address] Care Team Providers Care Pulp Mixer Name Role Phone Wilfrido Burnette MD Primary Care Provider Yolis Holt PRIMER SUPERVISOR Unavailable Reason for Visit * Reason Comments Cough x1week congestion he adache OTC theraflu Nausea last night stomach c ramping Encounter Details Date Type Department Care Team (Late st Contact Info) Description 09/29/2019 7:00 PM HAND POLISHER Office Visit [facility] [address], [place] [phone] Floridalma Cline, JARROD [address] [phone] Acute upper respiratory infection (Primary Dx); Fever in adult Social History Tobacco Use Types Packs/Day Years Used Date Smoking Tobacco: Never Smokeless Tobacco: Never Sex and Gender Information Value Date Recorded Sex Assigned at Not on file Gender Identity Not on file Sexual Orientation Not on file documented as of this encounter Last Filed Vital Signs Vital Sign Reading Time Taken Comments Blood Pressure 114/76 09/29/2019 7:21 PM HAND POLISHER Pulse 95 09/29/2019 7:21 PM HAND POLISHER Temperature 37.3 ??C (99.1 ??F) 09/29/2019 7:21 PM CS T Respiratory Rate 15 09/29/2019 7:21 PM HAND POLISHER Oxygen Saturation 97% 09/29/2019 7:21 PM HAND POLISHER Inhaled Oxygen Concentration - - Weight 48.1 kg (106 lb) 09/29/2019 7:21 PM HAND POLISHER Height 154.9 cm (5' 1 ) 09/29/2019 7:21 PM HAND POLISHER Body Mass Index 20.03 09/29/2019 7:21 PM HAND POLISHER documented in this encounter Patient Instructions * Patient Instructions* Floridalma Cline APRN - 09/29/2019 8:05 PM HAND POLISHER Images from the original note were not included. [employer]e. Upper Respiratory Infection (Cold): Care Instructions Your Care Instructions An upper respiratory infection, or URI, is an infection of the nose, sinuses, or throat. URIs are spread by coughs, sneezes, and direct contact. The common cold is the most frequent kind of URI. The flu and sinus infections are other kinds of URIs. Almost all URIs are caused by viruses. Antibiotics won't cure them. But you can treat most infections with home care. This may include drinking lots of fluids and taking dwzq-wwc-ekcwvpc pain medicine. You will probably feel better in 4 to 10 days. The doctor has checked you carefully, but problems can develop later. If you notice any problems ornew symptoms, get medical treatment right away. Follow-up care is a campbell part of your treatment and safety. Be sure to make and go to all appointments, and call your doctor if you are having problems. It's also a good idea to know your test resultsand keep a list of the medicines you take. How can you care for yourself at home? ?? To prevent dehydration, drink plenty of fluids, enough so that your urine is light yellow or clear like water. Choose water and other caffeine-free clear liquids until you feel better. If you havekidney, heart, or liver disease and have to limit fluids, talk with your doctor before you increasethe amount of fluids you drink. ?? Take an tmkc-egj-fbuarli pain medicine, such as acetaminophen (Tylenol), ibuprofen (Advil, Motrin), or naproxen (Aleve). Read and follow all instructions on the label. ?? Before you use cough and cold medicines, check the label. These medicines may not be safe for young children or for people with certain health problems. ?? Be careful when taking bnca-mej-cppoqtr cold or flu medicines and Tylenol at the same time. Manyof these medicines have acetaminophen, which is Tylenol. Read the labels to make sure that you are not taking more than the recommended dose. Too much acetaminophen (Tylenol) can be harmful. ?? Get plenty of rest. ?? Do not smoke or allow others to smoke around you. If you need help quitting, talk to your doctorabout stop-smoking programs and medicines. These can increase your chances of quitting for good. When should you call for help? Call 911 anytime you think you may need emergency care. For example, call if: ? You have severe trouble breathing. ??Call your doctor now or seek immediate medical care if: ? You seem to be getting much sicker. ? You have new or worse trouble breathing. ? You have a new or higher fever. ? You have a new rash. ??Watch closely for changes in your health, and be sure to contact your doctor if: ? You have a new symptom, such as a sore throat, an earache, or sinus pain. ? You cough more deeply or more often, especially if you notice more mucus or a change in the color of your mucus. ? You do not get better as expected. Where can you learn more? Go to https://www.OBMedical.net/patientEd Enter K520 in the search box to learn more about Upper Respiratory Infection (Cold): Care Instructions. Current as of: April 25, 2019 Content Version: 12.2 ?? [id number] [employer]. Care instructions adapted under license by your healthcare professional. If you have questions about a medical condition or this instruction, always ask your healthcare professional. These instructions may not represent the values of this healthcare organization. [employer] disclaims any warranty or liability for your use of this information. POLISHER documented in this encounter Progress Notes * Floridalma Cline APRN - 09/29/2019 7:37 PM CST HISTORY OF PRESENT ILLNESS Chiqui Romo, a 23 y.o. female presents with a Chief Complaint of Cough (x1week congestion headache OTC theraflu) and Nausea (last night stomach cramping) Subjective Patient presents with complaints of cough, congestion, sore throat over the past week. She denies fever, reports chills. She reports intermittent nausea, but denies vomiting and diarrhea. She also reports intermittent abdominal discomfort/cramping that started last night. She currently rates pain 1/10. She has taken OTC cough and cold medication for symptoms with some relief. 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 The history is provided by the patient. The medical record reflects the History of Present Illness as obtained by myself in discussion withthe patient. REVIEW OF SYSTEMS Review of Systems Constitutional: Negative for chills and fever. HENT: Positive for congestion, rhinorrhea and sore throat. Respiratory: Positive for cough. Negative for shortness of breath, wheezing and stridor. Gastrointestinal: Positive for abdominal pain and nausea. Negative for diarrhea and vomiting. Skin: Negative for rash. Neurological: Positive for headaches. Objective PHYSICAL EXAM BP 114/76 Pulse 95 Temp 99.1 ??F (37.3 ??C) (Temporal) Resp 15 Ht 5' 1 (1.549 m) Wt 48.1kg (106 lb) LMP 09/15/2019 SpO2 97% BMI 20.03 kg/m?? Physical Exam Vitals signs reviewed. Constitutional: General: She is not in acute distress. Appearance: She is well-developed. She is not diaphoretic. HENT: Head: Normocephalic and atraumatic. Right Ear: Tympanic membrane, ear canal and external ear normal. Left Ear: Tympanic membrane, ear canal and external ear normal. Nose: Congestion present. Mouth/Throat: Mouth: Mucous membranes are moist. Pharynx: Uvula midline. Posterior oropharyngeal erythema present. Eyes: Pupils: Pupils are equal, round, and reactive to light. Cardiovascular: Rate and Rhythm: Normal rate and regular rhythm. Heart sounds: Normal heart sounds, S1 normal and S2 normal. No murmur. No friction rub. No gallop. Pulmonary: Effort: Pulmonary effort is normal. No respiratory distress. Breath sounds: Normal breath sounds. No decreased breath sounds or wheezing. Abdominal: General: Abdomen is flat. Bowel sounds are normal. Palpations: Abdomen is soft. Tenderness: There is no tenderness. Comments: Patient denies pain with palpation. Lymphadenopathy: Cervical: Cervical adenopathy present. Skin: General: Skin is warm and dry. Capillary Refill: Capillary refill takes less than 2 seconds. Coloration: Skin is not pale. Findings: No erythema or rash. Neurological: Mental Status: She is alert and oriented to person, place, and time. Psychiatric: Behavior: Behavior normal. Behavior is cooperative. Procedures Assessment Office Visit on 09/29/19 (from the past 24 hour(s)) POC RAPID STREP A Collection Time: 09/29/19 7:49 PM Result Value Ref Range RAPID STREP Negative Negative INTERNAL KIT QC Pass Pass KIT LOT NUMBER see log KIT EXPIRATION DATE see log ASSESSMENT and PLAN: ICD-10-CM ICD-9-CM 1. Acute upper respiratory infection J06.9 465.9 cefdinir (OMNICEF) 300 mg capsule benzonatate (TESSALON) 200 mg capsule 2. Fever in adult R50.9 780.60 POC RAPID STREP A cefdinir (OMNICEF) 300 mg capsule benzonatate (TESSALON) 200 mg capsule Discussed lab results. Medication as prescribed. Discussed medication and side effects. Push fluids. May take Tylenol and Ibuprofen for pain, discomfort or fever. Take as directed. Patient education handout provided and discussed when to seek emergent treatment. If symptoms worsen or fail to improve in the next 48-hours, follow-up with PCP or return here. Plan of care discussed. Patient agrees with plan, all questions answered. Patient verbalized understanding. POLISHER documented in this encounter Plan of Treatment Not on file documented as of this encounter Procedures Procedure Name Priority Date/Time Associated Diagnosis Comments POC RAPID STREP A ANTIGEN Routine 09/29/2019 7:49 PM HAND POLISHER Fever in adult documented in this encounter Results * POC RAPID STREP A (09/29/2019 7:49 PM HAND POLISHER) RAPID STREP Negative Negative [facility] INTERNAL KIT QC Pass Pass [facility] KIT LOT NUMBER POC see log [facility] KIT EXPIRATION DATE POC see log [facility] Upper respiratory specimen (specimen) SPECIMEN FROM THROAT / Unknown 09/29/2019 7:49 PM HAND POLISHER Floridalma Cline PRIMER SUPERVISOR POINT OF CARE TESTKRISTIE Bajwa [facility] CLIA# [id number] [address] [address] documented in this encounter Visit Diagnoses Diagnosis Acute upper respiratory infection- Primary Acute upper respiratory infections of unspecified site Fever in adult documented in this encounter Care Teams Pulp Mixer Relationship Specialty Start Date End Date Wilfrido Burnette MD [address] [facility] [address] [place] [phone] PCP - General Family Practice 03/26/17 Yolis Holt APRN [address] [place] [phone] PCP - Primary Care APP1 Family Practice 03/26/17 documented as of this encounter
--- OUTSIDE RECORDS SUMMARY | 2024-11-04 11:47 | XMS_ITS | Encounter Summary ---
Author Organization [facility] Address [address] [facility] Attn: Epic Prelude ADT [place] [address] Care Team Providers Care Red Hat Linux Engineer Name Role Phone Wilfrido Burnette MD Primary Care Provider Encounter Details Date Type Department Care Team (Latest Contact Info) Description 06/18/2021 Travel Social History Tobacco Use Types Packs/Day [...] have Coronavirus / COVID-19? No / Unsure 06/18/2021 7:59 AM CDT documented as of this encounter Plan of Treatment Not on file documented as of this encounter Visit Diagnoses Not on filedocumented in this encounter Care Teams Red Hat Linux Engineer Relationship Specialty Start Date End Date Wilfrido Burnette MD [address] [facility] [address] [place] [phone] PCP - General Family Practice 03/26/17 09/24/21 documented as of this encounter
--- OUTSIDE RECORDS SUMMARY | 2024-11-04 11:47 | XMS_ITS | Encounter Summary ---
Author Organization [facility] Address [address] [place] [address] Care Team Providers Care Choir Director Name Role Phone Wilfrido Burnette MD Primary Care Provider Yolis Holt HEARING AIDE TECHNICIAN Unavailable [phone] Reason for Visit * Eval and Treat (Routine) - Closed Specialty Diagnoses / Procedures Referred By Nicol vaughan Referred To Contact Physical Therapy Diagnoses Acute bilateral low back pain without sciatica Yolis Holt H, HEARING AIDE TECHNICIAN [address] [place] [address] [facility] [address] [address] Referral ID Status Reason Start Date Expiration Date Visits Re quested Visits Authorized [id number] Closed 04/18/2017 04/18/2018 6 6 Encounter Details Date Type Department Care Team (Late st Contact Info) Description 05/01/2017 2:15 PM CDT - 05/01/2017 11:59 PM CDT Hospital Encounter [facility] Physical Therapy [facility] [address] [place] [phone] Yolis Holt H, HEARING AIDE TECHNICIAN [address] [place] [phone] Johana Galvin, Development Professional Acute bilateral low back pain without sciatica Discharge Disposition: Home or Self Care Social History Tobacco Use Types Packs/Day Years Used Date Smoking Tobacco: Never Sex and Gender Information Value Date Recorded Sex Assigned at Not on file Gender Identity Not on file Sexual Orientation Not on file documented as of this encounter Miscellaneous Notes * Therapy Treatment - Johana Galvin Development Professional - 05/01/2017 3:00 PM CDT Physical Therapy Daily Note Date: 05/01/17 Start Time: 222 Pt late End Time: 307 Total Time: 45 minutes Area Treated: Thoracolumbar and L LE Subjective: Pain level prior to treatment: Are you having pain right now? Yes Rate your pain on a scale of 1 - 10: 3 Patient states pain is in mid back and that she has not danced the last couple of days so she has been able to rest. Medication changes since last visit: No Medical Dx change since last visit: No Allergic drug response since last visit: No Significant operation and or procedure since last visit: No Objective: Patient required cues for proper positioning with exercises. Modalities Used: 91249 Interferential @ 20 intensity 10 minutes, 89983 Hot Pack/Cold Pack x 10 minutes in order to decrease pain, improve ROM, improve tissue mobility, decrease inflammation, improve exercise tolerance to assist pt to be able to perform ADLs with greater ease. Modality performed at end of session. Exercises: Chiqui performed the following exercises: Nustep, lumbar extension, thoracic extension, SLR 4 ways, bridges, bird dogs 52932: Therapeutic Exercise performed for 35 minutes Home Exercise Program/Instruction: Continue Assessment-Patient's Response to Treatment/Functional Progress: Patient had no complaints of increased pain with exercises and had no change in pain at end of session. Pain Level After Treatment: Are you having pain right now? Yes Rate your pain on a scale of 1 - 10: 3 Plan: Continue current treatment plan Pt will continue to work on improve bilateral hip strength, and lumbar ROM in order to return to PLOF without pain and limitations. Therapist's Signature: Johana Galvin Development Professional documented in this encounter Plan of Treatment Not on file documented as of this encounter Visit Diagnoses Not on filedocumented in this encounter Care Teams Choir Director Relationship Specialty Start Date End Date Wilfrido Burnette MD [address] [facility] [address] [place] [phone] PCP - General Family Practice 03/26/17 Yolis Holt APRN [address] [facility] [place] [phone] PCP - Primary Care APP1 Family Practice 03/26/17 documented as of this encounter
--- OUTSIDE RECORDS SUMMARY | 2024-11-04 11:47 | XMS_ITS | Encounter Summary ---
Author Organization [facility] Address [address] [place] [address] Care Team Providers Care Chief Contract Officer Name Role Phone Wilfrido Burnette MD Primary Care Provider Yolis Holt NIGHT WAREHOUSE MANAGER Unavailable [phone] Encounter Details Date Type Department Care Team (Late st Contact Info) Description 05/15/2017 2:13 PM CDT - 05/15/2017 11:59 PM CDT Hospital Encounter [facility] Physical Therapy Services [facility] [address] [phone] Yolis Holt, NIGHT WAREHOUSE MANAGER [address] [facility] [place] [phone] Johana Galvin, Boatbuilder Apprentice Wood Acute bilateral low back pain without sciatica Discharge Disposition: Home or Self Care Social History Tobacco Use Types Packs/Day Years Used Date Smoking Tobacco: Never Sex and Gender Information Value Date Recorded Sex Assigned at Not on file Gender Identity Not on file Sexual Orientation Not on file documented as of this encounter Discharge Summaries * Kenya Morales I, Physical Therapist - 06/19/2017 9:54 AM CDT DISCHARGE SUMMARY Primary Diagnosis: M54.5 (ICD-10-CM) - 724.2, 338.19 (ICD-9-CM) - Acute bilateral low back pain without sciatica Treatment Diagnosis: Stiffness of Joint: lumbar, Pain in Thoracic Spine, Lumbago Referring Provider: Yolis Holt APRN Client Seen From: 04/23/17 to 05/15/17 Total of 6 of 13 visits scheduled Treatment To Date: Hot/Cold Pack, Stabilization Exercises: lumbar and pelvic core, Pt./Family Education, Active/Passive ROM, Posture/Body Mechanics Inst., Manual Therapy, Electrical Stimulation, Therapeutic Exercise, Balance/Vestibular Training Objective Findings: Unable to reassess goals or take objective measurements due to patient canceling remaining appointments. See initial evaluation Recommendations: Recommend discharge. Patient did not return for treatment. Thank you for the opportunity to assist in the healthcare of your patient. If we can be of further assistance or if you have any questions or comments concerning this report, please do not hesitate to contact me at #[phone] and press #[phone]. Therapist Signature: Kenya Morales Physical Therapist Date: 06/19/2017 documented in this encounter Miscellaneous Notes * Therapy Treatment - Johana Galvin, Boatbuilder Apprentice Wood - 05/15/2017 3:40 PM CDT Physical Therapy Daily Note Date: 05/15/17 Start Time: 220 End Time: 312 Total Time: 52 minutes Area Treated: Thoracolumbar and L LE [...] for proper positioning with exercises. Modalities Used: 29870 Interferential @ 20 intensity 10 minutes, 53935 Hot Pack/Cold Pack x 10 minutes in order to decrease pain, improve ROM, improve tissue mobility, decrease inflammation, improve exercise tolerance to assist pt to be able to perform ADLs with greater ease. Modality performed at end of session. Exercises: Chiqui performed the following exercises: Nustep, lumbar extension, trunk rotation, hip 4way, SLbridge, bird dogs with 2# dowel 32523: Therapeutic Exercise performed for 42 minutes Home Exercise Program/Instruction: Continue Assessment-Patient's Response to Treatment/Functional Progress: Patient had no change in pain but doing well with exercises. Pain Level After Treatment: Are you having pain right now? Yes Rate your pain on a scale of 1 - 10: 2 Plan: Continue current treatment plan Pt will continue to work on improve bilateral hip strength, and lumbar ROM in order to return to PLOF without pain and limitations. Therapist's Signature: Johana Galvin Boatbuilder Apprentice Wood documented in this encounter Plan of Treatment Not on file documented as of this encounter Visit Diagnoses Not on filedocumented in this encounter Care Teams Chief Contract Officer Relationship Specialty Start Date End Date Wilfrido Burnette MD [address] [place] [phone] PCP - General Family Practice 03/26/17 Yolis Holt APRN [address] [facility] [place] [phone] PCP - Primary Care APP1 Family Practice 03/26/17 documented as of this encounter
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
--- OUTSIDE RECORDS SUMMARY | 2024-11-04 11:47 | XMS_ITS | Encounter Summary ---
Author Organization [facility] Address [address] [place] [address] Care Team Providers Care Clay Washer Name Role Phone Unavailable Primary Care Provider Unavailabl e Reason for Visit * Reason Comments Head Injury Moving a wheelchair downstairs and slipped. Wheel of chair hit head, laceration to left upper eyelid. Denies LOC or blood thinners. * Auth/Cert Specialty Diagnoses / Procedures Referred By Nicol vaughan Referred To Contact Emergency Medicine [facility] [address] [facility] [place] [address] Referral ID Status Reason Start Date Expiration Date Visits Re quested Visits Authorized [id number] 1 1 Encounter Details Date Type Department Care Team (Late st Contact Info) Description 07/20/2022 9:09 PM CDT - 07/20/2022 11:55 PM CDT Emergency [facility] Emergency Department [address] [facility] [place] [address] Left eyelid laceration, initial encounter (Primary Dx) Discharge Disposition: Home or Self [...] Pressure 115/68 07/20/2022 11:19 PM CDT Pulse - - Temperature 36.4 ??C (97.6 ??F) 07/20/2022 7:21 PM CD T Respiratory Rate 18 07/20/2022 11:19 PM CDT Oxygen Saturation 100% 07/20/2022 11:19 PM CDT Inhaled Oxygen Concentration - - Weight 48.1 kg (106 lb) 07/20/2022 7:21 PM CDT Height 154.9 cm (5' 1 ) 07/20/2022 7:21 PM CDT Body Mass Index 20.03 07/20/2022 7:21 PM CDT documented in this encounter Discharge Instructions * Attachments The following attachments cannot be sent through Care Everywhere. * Lacerations: Adhesives (Bengali) documented in this encounter ED Notes * Humberto Roberts PA - 07/20/2022 7:16 PM CDT Images from the original note were not included. HISTORY OF PRESENT ILLNESS Chiqui Romo, a 26 y.o. female presents to the ED with a Chief Complaint of Head Injury Subjective Patient is a 26-year-old female present with complaint of forehead laceration and injury. She reports that she was helping her mother move and was carrying a piece of furniture upstairs. Her mother accidentally let go of the other end of the furniture and the piece of furniture hit her in the forehead. She denies LOC or falling. Reports that she had a little bit of bleeding on her left eyebrow with subsequent swelling. She denies headache, dizziness, lightheadedness, confusion. Denies nausea, vomiting. REVIEW OF SYSTEMS Review of Systems Constitutional: Negative for activity change, appetite change, diaphoresis and fever. Respiratory: Negative for cough, chest tightness and shortness of breath. Gastrointestinal: Negative for abdominal distention, abdominal pain, diarrhea, nausea and vomiting. Musculoskeletal: Negative for arthralgias, back pain, myalgias, neck pain and neck stiffness. Skin: Positive for wound. Negative for color change, pallor and rash. Neurological: Negative for weakness, numbness and headaches. Psychiatric/Behavioral: Negative for agitation, behavioral problems and confusion. PAST MEDICAL HISTORY REVIEWED MEDICAL: Patient has [...] on file. Social History Other Topics Concern Not on file ALLERGIES Azithromycin HOME MEDICATIONS Patient's Home Medications Objective PHYSICAL EXAM INITIAL VS BP: 113/74 (07/20/221920), Heart Rate: 78 bpm (07/20/221920), Resp: 18 (07/20/221920), Pulse: (not recorded), Temp: 97.6 ??F (36.4 ??C) (07/20/221920), Temp src: Temporal (07/20/221920), SpO2: 99 % (07/20/221920), Height: 5' 1 (154.9 cm) (07/20/221920), Weight: 48.1 kg (106 lb) (07/20/221920), BMI (Calculated): 20.04 (07/20/221920) No LMP recorded. Physical Exam Vitals and nursing note reviewed. Exam conducted with a circus laborer present. Constitutional: Appearance: Normal appearance. She is normal weight. HENT: Head: Normocephalic. Comments: 1.5 cm straight superficial laceration right below the left eyebrow. No active bleeding noted. Small hematoma under the eyebrow noted. Right Ear: External ear normal. Left Ear: External ear normal. Nose: Nose normal. Mouth/Throat: Pharynx: Oropharynx is clear. Eyes: Conjunctiva/sclera: Conjunctivae normal. Cardiovascular: Rate and Rhythm: Normal rate and regular rhythm. Pulses: Normal pulses. Heart sounds: Normal heart sounds. Pulmonary: Effort: Pulmonary effort is normal. Abdominal: General: Abdomen is flat. Musculoskeletal: General: No swelling or tenderness. Normal range of motion. Cervical back: Normal range of motion. No rigidity or tenderness. Skin: General: Skin is warm. Capillary Refill: Capillary refill takes less than 2 seconds. Findings: Bruising present. Neurological: General: No focal deficit present. Mental Status: She is alert and oriented to person, place, and time. Mental status is at baseline. GCS: GCS eye subscore is 4. GCS verbal subscore is 5. GCS motor subscore is 6. Cranial Nerves: Cranial nerves 2-12 are intact. No cranial nerve deficit. Sensory: Sensation is intact. No sensory deficit. Motor: No weakness. Coordination: Coordination normal. Gait: Gait normal. Psychiatric: Mood and Affect: Mood normal. DIAGNOSTICS LAB: No data to display RADIOLOGY: No orders to display EKG: PROCEDURES Procedures MEDICAL DECISION MAKING AND PLAN OF CARE MDM Summary Statement: Patient presented for evaluation of left eyelid laceration and injury. On exam she has a small 1.5 superficial laceration with no bleeding. Small hematoma underlying her laceration. She has no tenderness of the orbital bones, nasal bones. Extraocular movements are unremarkable. Vision is grossly intact. We discussed risks and benefits of imaging and patient would prefer not to do anything as she says that she believes this is only superficial and she is not having any tenderness of her foreheador other parts of her head. I think this is reasonable. We will repair her laceration with Steri-Strips and have her follow- up with her primary care provider in a few days. She is agreeable to this plan and has no further questions or complaints. She was discharged in stable condition. I have discussed results with the patient who verbalized understanding of their condition, they areagreeable to the treatment plan. I have answered all their questions regarding today's evaluation as well as follow-up plan. They have no further questions or concerns and feel comfortable returning home. Return precautions provided to patient and they verbalized understanding . I have reviewed nursing notes related to past medical history, social history, and review of systems and agree, unless otherwise noted. Medications Administered During the ED Stay from 07/20/2022 1916 to 07/20/2022 2348 Date/Time Order Dose Route Action 07/20/2022 3392 CDT ngicifijp-qjaakbqarjh-icxlcodtwy (LET) 4-0.18-0.5 % gel 5 mL 5 mL Topical Given . LAST VS BP: 115/68 (07/20/222318), Heart Rate: 64 bpm (07/20/222318), Resp: 18 (07/20/222318), Pulse: (not recorded), Temp: 97.6 ??F (36.4 ??C) (07/20/221920), Temp src: Temporal (07/20/221920), SpO2: 100 % (07/20/22 2319) CLINICAL IMPRESSION Final diagnoses: [S01.112A] Left eyelid laceration, initial encounter (Primary) DISPOSITION, EDUCATION AND MEDICATION RECONCILIATION Medications reconciled. See after visit summary for patient education on discharged patients. ED Disposition ED Disposition Discharge Condition Stable User Humberto Roberts PA Date/Time Sat Jul 20, 2022 11:41 PM Comment -- ATTESTATION STATEMENTS documented in this encounter Plan of Treatment Not on file documented as of this encounter Visit Diagnoses Diagnosis Left eyelid laceration, initial encounter- Primary documented in this encounter Administered Medications Inactive Administered Medications - up to 3 most recent administrations Medication Order MAR Action Action Date Dose Rate Site xraidezmg-lcdaywekjwb-ctcslephot (LET) 4-0.18-0.5 % gel 5 mL 5 mL, Topical, ONE TIME ONLY, 1 dose, On 07/20/22 at 2200, Routine Given 07/20/2022 10:42 PM CDT 5 mL Face documented in this encounter Active and Recently Administered Medications Times are shown in CDT. Scheduled Medication Order 07/18/2022 07/19/2022 07/20/2022 ptklpjoat-chmogkwisfy-guqtxdsiac (LET) 4-0.18-0.5 % gel 5 mL (COMPLETED) 5 mL, Topical, ONE TIME ONLY, 1 dose, On 07/20/22 at 2200, Routine 2241 (Given - Provid er: Pita Morales RN - Comment: upper lt eye under brow) documented in this encounter
--- OUTSIDE RECORDS SUMMARY | 2024-11-04 11:47 | XMS_ITS | Encounter Summary ---
Author Organization [facility] Address [address] [place] [address] Care Team Providers Care Christian Science Healer Name Role Phone Unavailable Primary Care Provider Unavailabl e Reason for Visit * Reason Comments PPD Skin Test Read Encounter Details Date Type Department Care Team (Latest Contact Info) Description 05/30/2022 8:00 AM CDT Clinical Support [facility] Family Medicine Physician Jag [address] [facility] [place] [phone] Encounter for PPD skin test reading (Primary Dx) Social History Tobacco Use Types [...] Progress Notes * Edyta Juarez RN - 05/30/2022 7:53 AM CDT PPD Reading Note PPD read and results entered in [email or web address]. Result: 0 mm induration. Interpretation: Negative per Yolis Holt APRN Allergic reaction: maybe, has small red area around injection site but no induration Result card provided to patient. documented in this encounter Plan of Treatment Not on file documented as of this encounter Visit Diagnoses Diagnosis Encounter for PPD skin test reading- Primary documented in this encounter
--- OUTSIDE RECORDS SUMMARY | 2024-11-04 11:48 | XMS_ITS | Encounter Summary ---
Author Organization [facility] Address [address] [place] [address] Care Team Providers Care Smelter Charger Name Role Phone Wilfrido Burnette MD Primary Care Provider Reason for Visit * Reason Comments PPD Test Encounter Details Date Type Department Care Team (Latest Contact Info) Description 06/15/2021 8:00 AM CDT Clinical Support [facility] Family Medicine Physician Jag [address] [facility] [place] [address] Encounter for PPD test (Primary Dx) [...] have Coronavirus / COVID-19? No / Unsure 06/15/2021 7:53 AM CDT documented as of this encounter Progress Notes * Melissa Ritter LPN - 06/15/2021 8:16 AM CDT Tuberculin skin test applied to right ventral forearm. documented in this encounter Plan of Treatment Not on file documented as of this encounter Visit Diagnoses Diagnosis Encounter for PPD test- Primary Screening examination for pulmonary tuberculosis documented in this encounter Care Teams Smelter Charger Relationship Specialty [place] [address] [place] [address] [address] [place] [phone] PCP - General Family Practice 03/26/17 09/24/21 documented as of this encounter
--- OUTSIDE RECORDS SUMMARY | 2024-11-04 11:48 | XMS_ITS | Encounter Summary ---
Author Organization [facility] Address [address] [facility] Attn: Epic Prelude ADT [place] [address] Care Team Providers Care Hopper Attendant Name Role Phone Wilfrido Burnette MD Primary Care Provider Encounter Details Date Type Department Care Team (Latest Contact Info) Description 06/15/2021 Travel Social History Tobacco Use Types Packs/Day [...] on filedocumented in this encounter Care Teams Hopper Attendant Relationship Specialty Start Date End Date Wilfrido Burnette MD [address] [facility] [address] [place] [phone] PCP - General Family Practice 03/26/17 09/24/21 documented as of this encounter
--- OUTSIDE RECORDS SUMMARY | 2024-11-04 11:48 | XMS_ITS | Encounter Summary ---
Author Organization [facility] Address [address] [facility] [address] Attn: Epic Prelude ADT [place] [address] Care Team Providers Care Vp Digital Marketing Social Media And Crm Name Role Phone Wilfrido Burnette MD Primary Care Provider Encounter Details Date Type Department Care Team (Latest Contact Info) Description 06/14/2021 Travel Social History Tobacco Use Types Packs/Day [...] or suspected to have Coronavirus / COVID-19? Unable to assess 06/14/2021 7:09 AM CDT documented as of this encounter Plan of Treatment Not on file documented as of this encounter Visit Diagnoses Not on filedocumented in this encounter Care Teams Vp Digital Marketing Social Media And Crm Relationship Specialty Start Date End Date Wilfrido Burnette MD [address] [facility] [address] [place] [phone] PCP - General Family Practice 03/26/17 09/24/21 documented as of this encounter
--- OUTSIDE RECORDS SUMMARY | 2024-11-04 11:48 | XMS_ITS | Encounter Summary ---
Author Organization [facility] Address [address] [place] [address] Care Team Providers Care Support Dba Name Role Phone Wilfrido Burnette MD Primary Care Provider Reason for Visit * Reason Comments PPD Skin Test Read Encounter Details Date Type Department Care Team (Latest Contact Info) Description 06/18/2021 10:20 AM CDT Clinical Support [facility] Family Medicine Physician Jag [address] [facility] [place] [phone] Encounter for PPD skin test reading (Primary [...] Progress Notes * Melissa Ritter LPN - 06/18/2021 9:23 AM CDT PPD read, results = 0mm, negative documented in this encounter Plan of Treatment Not on file documented as of this encounter Visit Diagnoses Diagnosis Encounter for PPD skin test reading- Primary documented in this encounter Care Teams Support Dba Relationship Specialty Start [place] [address] [place] [address] [address] [place] [phone] PCP - General Family Practice 03/26/17 09/24/21 documented as of this encounter
== END 2024-10-30 23:51 | disposition home or self-care (01) ==
PROVIDERS: Emergency Provider Physician Assistant
DX: S52.125A Nondisplaced fracture of head of left radius, initial encounter for closed fracture (principal); W18.30XA Fall on same level, unspecified, initial encounter
CPT/HCPCS: 73080; 99284; A4565; A9270